=== PATIENT | female | born 1965 | race Caucasian/White ===

== ENCOUNTER 2025-03-15 01:42 | Day surgery (SDC) | payer OTHER, SELFPAY ==
[2025-02-23 15:10] VITALS: BMI 31.7
--- NOTE | 2025-02-23 15:21 | PC.NURSE ---
Report to the Outpatient Waiting Room, entrance under the green pavilion located off [facility], at time _0600__ on date __03/08/25 . Planned Procedure Time: _729 .? Time changes happen often and if your time is changed the preop area will call you the afternoon before. - You and your visitor will be asked to self-screen and do not enter if you have any COVID symptoms. Please call surgeon if you need to reschedule. - A mask is optional within the hospital at this time. Patients may have clear liquids (water, carbonated beverages, clear teas, apple juice) until 3 hours prior to surgery with a maximum of 20 ounces. - No food from midnight until time of surgery and no smoking, or chewing tobacco (or any form of nicotine). No chewing gum, candy or mints. - Infants may have breast milk until 4 hours before surgery, infant formula 6 hours prior to surgery. - Children will be allowed to drink immediately following surgery.? If applicable, please bring a bottle or sippy cup to assist with drinking. Juice, water, soda, and popsicles are readily available.? For infants on formula, please bring formula the day of surgery.? Pacifiers are allowed. Take only the following medications with a SIP of water on the morning of surgery: _Metoprolol, and flecanide DO NOT STOP ANY OF YOUR OTHER PRESCRIPTION MEDICATIONS PRIOR TO SURGERY EXCEPT THE FOLLOWING Hold all vitamins and supplements for 3 days per anesthesiologist. Medications to discontinue per physician ___Eliquis Date to take last dose__3 days prior Please no make-up, nail divehi, hairspray, perfume, deodorant, or body powder the day of surgery.? No jewelry (including any body piercings) or valuables the day of surgery, leave them at home.? Please take a shower or bath the night before, or the morning of, surgery with an antibacterial soap.? Wear comfortable, loose fitting clothing.? Children are encouraged to wear pajamas. - Jewelry must be removed prior to entering the operating room.? Rings and piercings that are not removed may be cut off. - The hospital will not accept responsibility for valuables.? - Please leave all valuables, including medications, at home the day of surgery. If you are going home after surgery, a licensed trailer truck driver must drive you home.? - NO public transportation without another adult if you receive anesthesia. - We recommend that an adult stay with you for 24 hours following discharge. - We also recommend that you do not drive, make important decision, drink alcoholic beverages, or take any drugs that were not prescribed by your health care provider for at least 24 hours after your discharge time. For Pediatric surgeries, we recommend two adults accompany the child home. Follow any additional instructions given to you from your surgeon. Telephone instructions given to ___Traci and asked if any additional questions and then verbalized understanding. Patient advised to call surgeon office or pre surgery nurse liaison [phone] if any additional questions.
--- NOTE | 2025-03-04 12:51 | PC.NURSE ---
Procedure rescheduled for 03/15/2025 - Pre-op interview done on 02/23/2025. At this time Pt states no changes to interview questions or PMH. This RN re-confirmed allergies, preferred pharmacy, and home med list; as well as, gave update instructions to patient. Report to the Outpatient Waiting Room, entrance under the green pavilion located off [facility], at time _1145__ on date __03/15/25 . Planned Procedure Time: _1345 .? Time changes happen often and if your time is changed the preop area will call you the afternoon before. - You and your visitor will be asked to self-screen and do not enter if you have any COVID symptoms. Please call surgeon if you need to reschedule. - A mask is optional within the hospital at this time. Patients may have clear liquids (water, carbonated beverages, clear teas, apple juice) until 3 hours prior to surgery with a maximum of 20 ounces. - No food from midnight until time of surgery and no smoking, or chewing tobacco (or any form of nicotine). No chewing gum, candy or mints. - Infants may have breast milk until 4 hours before surgery, infant formula 6 hours prior to surgery. - Children will be allowed to drink immediately following surgery.? If applicable, please bring a bottle or sippy cup to assist with drinking. Juice, water, soda, and popsicles are readily available.? For infants on formula, please bring formula the day of surgery.? Pacifiers are allowed. Take only the following medications with a SIP of water on the morning of surgery: _Metoprolol and flecanide_ DO NOT STOP ANY OF YOUR OTHER PRESCRIPTION MEDICATIONS PRIOR TO SURGERY EXCEPT THE FOLLOWING Hold all vitamins and supplements for 3 days per anesthesiologist. Medications to discontinue per physician ___Eliquis Date to take last dose__3 days prior Please no make-up, nail czech, hairspray, perfume, deodorant, or body powder the day of surgery.? No jewelry (including any body piercings) or valuables the day of surgery, leave them at home.? Please take a shower or bath the night before, or the morning of, surgery with an antibacterial soap.? Wear comfortable, loose fitting clothing.? Children are encouraged to wear pajamas. - Jewelry must be removed prior to entering the operating room.? Rings and piercings that are not removed may be cut off. - The hospital will not accept responsibility for valuables.? - Please leave all valuables, including medications, at home the day of surgery. If you are going home after surgery, a licensed transit mixer driver must drive you home.? - NO public transportation without another adult if you receive anesthesia. - We recommend that an adult stay with you for 24 hours following discharge. - We also recommend that you do not drive, make important decision, drink alcoholic beverages, or take any drugs that were not prescribed by your health care provider for at least 24 hours after your discharge time. For Pediatric surgeries, we recommend two adults accompany the child home. Follow any additional instructions given to you from your surgeon. Telephone instructions given to ___Traci and asked if any additional questions and then verbalized understanding. Patient advised to call surgeon office or pre surgery nurse liaison [phone] if any additional questions.
--- OUTSIDE RECORDS SUMMARY | 2025-03-15 01:45 | XMS_ITS | Clinical Summary ---
Author Organization [facility] Address [address] [place] [address] Care Team Providers Care Transit Operations Supervisor Name Role Phone Nash Tinajero MD Unavailable [phone] Alexi Islas MD Unavailable Sivan Merritt MD Primary Care Provider [phone] Allergies Active Allergy Reactions Criticality Noted Date Comments Meperidine Hives 10/22/2014 demerol Medications flecainide (TAMBOCOR) 100 MG tablet TAKE 1 TABLET BY MOUTH TWO TIMES A DAY 180 tablet 1 11/24/2024 Active valACYclovir (VALTREX) 500 MG tablet take 1 tablet by mouth twice a day for 5 days 01/26/2025 Active metoprolol succinate ER (TOPROL-XL) 50 MG 24 hr tablet Take 1 tablet (50 mg total) by mouth daily. NEW DOSE OV 01/29/25 90 tablet 1 01/29/2025 Active apixaban (ELIQUIS) 5 MG tablet Take 1 tablet (5 mg total) by mouth 2 (two) times daily. 60 tablet 5 01/29/2025 Active Active Problems Problem Noted Date Diagnosed Date Low vitamin D level 12/17/2024 Uterine bleeding 12/17/2024 Hyperlipidemia, mixed 09/03/2022 Assessment & Plan (12/23/2023 3:13 PM RELAY ENGINEER): Her ASCVD risk score is 2.4%. She is currently low risk. I am fine with lifestyle modifications and I do not think she requires statin therapy at this time. Assessment & Plan (09/03/2022 10:36 AM CDT): Her lipids are significantly elevated compared to previously. We will recheck another lipid panel. Fibromyalgia 08/18/2021 Paroxysmal A-fib ([facility]) 10/13/2018 Assessment & Plan (12/23/2023 3:13 PM RELAY ENGINEER): She is having minimal symptoms of atrial fibrillation. Continue flecainide, metoprolol and aspirin. Assessment & Plan (09/03/2022 10:36 AM CDT): She is having minimal symptoms of atrial fibrillation. Continue flecainide, metoprolol and aspirin. Assessment & Plan (07/10/2021 8:59 PM CDT): She is not having symptoms from atrial fibrillation. Continue flecainide, Metoprolol and aspirin. Obese 12/23/2014 Assessment & Plan (12/23/2023 3:13 PM RELAY ENGINEER): Pending her stress test, we will plan on encouraging lifestyle modifications if ischemic evaluation is negative. Assessment & Plan (07/10/2021 8:59 PM CDT): Pending her stress test, we will plan on encouraging lifestyle modifications if ischemic evaluation is negative. Heart palpitations Resolved Problems Problem Noted Date Diagnosed Date Resolved Date Shortness of breath 07/10/2021 08/29/20 22 Assessment & Plan (07/10/2021 8:58 PM CDT): We will plan on pharmacologic nuclear stress testing for further evaluation of her symptoms. She is not able to walk on a treadmill secondary to arthritis and joint pain. Abdominal pain 08/07/2018 08/29/2022 Cough 11/13/2017 08/29/2022 Acid reflux 10/12/2015 08/29/2022 Herniated disc, cervical 12/23/201410/2022 Heartburn 12/23/2014 08/29/2022 Vitamin D deficiency 10/26/2014 022 Encounters Date Type Department Care Team Description 02/26/2025 9:30 AM CDT Telephone [facility], [address] [address] Alexi Islas MD Holter Monitor 02/23/2025 3:17 PM CDT - 02/23/2025 11:59 PM CDT Hospital Encounter [facility] [place] [address] Alexi Islas MD Discharge Disposition: Home or Self Care (Routine Discharge) 02/23/2025 Travel 02/19/2025 Orders Only [facility], [address] [address] Alexi Islas MD 02/18/2025 4:15 PM CDT - 02/18/2025 11:59 PM CDT Hospital Encounter [facility] [place] [address] Evelyne Canales PA-C Discharge Disposition: Home or Self Care (Routine Discharge) 02/18/2025 Travel 02/18/2025 MyChart Message Enc [facility], [address] [address] Alexi Islas MD Rhythm Strip 02/18/2025 Telephone [facility], [address] [address] Evelyne Canales PA-C Concerns 01/29/2025 1:00 PM CDT Office Visit [facility], [address] [address] Alexi Islas MD Follow Up; Atrial Fibrillation 01/29/2025 Travel 01/01/2025 8:00 AM RELAY ENGINEER Anesthesia Event [facility] [address] Archana Rodrigues MD 01/01/2025 6:10 AM RELAY ENGINEER - 01/01/2025 11:59 PM RELAY ENGINEER Hospital Encounter [facility] [address] Alexi Islas MD Discharge Disposition: Home or Self Care (Routine Discharge) 01/01/2025 6:10 AM RELAY ENGINEER - 01/01/2025 3:40 PM RELAY ENGINEER Hospital Encounter [facility] [place] [address] Alexi Islas MD Schuessler, Martha E, MD Hunt, Abi Corona CRNA Discharge Disposition: Home or Self Care (Routine Discharge) 01/01/2025 Travel 12/22/2024 2:23 PM RELAY ENGINEER - 12/22/2024 11:59 PM RELAY ENGINEER Hospital Encounter [facility] [address] Piper ms, Destiny Phillips, OUTREACH REP Discharge Disposition: Home or Self Care (Routine Discharge) 12/22/2024 Travel from Last 3 Months Immunizations Immunization Administration Dates Next Due Fluarix (IIV4) 09/03/2019 Influenza (Generic) 09/02/2019,09/02/2019,2016 PFIZER COVID-19 (ORIGINAL FO RMULATION, PURPLE CAP) mRNA, LNP-S, PF, 30 MCG/0.3 ML DOSE 11/07/2020 Shingrix 09/10/2020 Tdap (Boostrix) 03/20/2019 Family History Medical History Relation Comments Heart Attack Maternal Grandmother Other Maternal Grandmother Valve Disease Maternal Grandmother Cancer Mother Diabetes Mother Heart Attack Mother Hypertension Mother Open Heart Mother Stent Cardiac Mother Stroke Mother cardiac disorder Mother cva Mother pancreatic ca Mother Relation Status Comments Brother Alive Father Alive Maternal Grandfather Maternal Grandmother Mother (Age 65) Paternal Grandfather Paternal Grandmother DU E TO PNEUMONIA Sister Alive Social History Tobacco Use Types Packs/Day Years Used Date Smoking Tobacco: Never Smokeless Tobacco: Never Tobacco Cessation:Counseling Given: Not Answered Alcohol Use Standard Drinks/Week Comments Yes 0 (1 standard drink = 0.6 oz pur e alcohol) rare Comments No Sex and Gender Information Value Date Recorded Sex Assigned at Female 12/04/2024 2:09 PM RELAY ENGINEER Legal Sex Female 8:08 PM CDT Gender Identity Not on file Sexual Orientation Not on file Occupation Industry Job Start Date Job End Date RN Not on file Not on file Not on file Last Filed Vital Signs Vital Sign Reading Time Taken Comments Blood Pressure 132/84 01/29/2025 1:07 PM CDT Pulse 58 01/29/2025 1:07 PM CDT Temperature 36.2 C (97.1 F) 01/01/2025 9:44 AM RELAY ENGINEER Respiratory Rate 20 01/01/2025 1:30 PM RELAY ENGINEER Oxygen Saturation 96% 01/29/2025 1:07 PM CDT Inhaled Oxygen Concentration - - Weight 97.5 kg (215 lb) 01/29/2025 1:07 PM CDT Height 172.7 cm (5' 8 ) 01/29/2025 1:07 PM CDT Body Mass Index 32.69 01/29/2025 1:07 PM CDT Plan of Treatment Upcoming Encounters Date Type Department Care Team (Late st Contact Info) Description 08/06/2025 1:15 PM CDT Office Visit [facility], [facility] [address], [place] [id number] Alexi Islas MD [facility]. [facility] [address] [place] [address] Health Maintenance Due Date Last Done Comments Colorectal Cancer Screening Colonoscopy (10 Years) 1965 Annual Physical 1969 Hepatitis C 1984 Hepatitis B Vaccines (1 of 3 - 19+ 3-dose series) 1985 Pneumococcal Vaccine: 50+ Years (1 of 1 - PCV) 2016 Cervical Cancer Screening Pap Smear (Age 30 to 64) Every 3 Years 02/17/2024 Cervical Cancer Screening with HPV 02/17/2024 COVID-19 Vaccine (2 - season) 2024 11/07/2020 Mammogram Screening 01/08/2026 01/08/2024, 12/06/2022, 12/06/2022, Additional history exists Cervical Cancer Screening Pap with HPV Testing (Age 30 to 64) Every 5 Years 03/08/2027 03/08/2022 DTaP, Tdap and Td Vaccines (2 - Td or Tdap) 03/20/2029 03/20/2019 Zoster Vaccines Completed 02/22/2021, 09/10/2020 Meningococcal B Vaccine Aged Out No l onger eligible based on patient's age to complete this topic Meningococcal Vaccine Aged Out No james tate eligible based on patient's age to complete this topic RSV Immunizations Under 20 Months Aged Out No longer eligible based on patient's age to complete this topic Procedures Procedure Name Priority Date/Time Associated Diagnosis Comments USE ECHOCARDIOGRAM Routine 02/23/2025 3: 45 PM CDT Paroxysmal A-fib (CMS/HCC HHS/HCC) MAGNESIUM Routine 02/18/2025 4:23 PM CDT Paroxysmal A-fib (CMS/HCC HHS/HCC) BASIC METABOLIC PANEL Routine 02/18/2025 4:23 PM CDT Paroxysmal A-fib (CMS/HCC HHS/HCC) ELECTROCARDIOGRAM (NON MIDMARK ACQUIRED) Routine 01/29/2025 1:13 PM CDT Paroxysmal A-fib (CMS/HCC HHS/HCC) ECG 12-LEAD STAT 01/01/2025 1:46 PM RELAY ENGINEER Paroxysmal A-fib (CMS/HCC HHS/HCC) USE ECHO 2D FU LTD Today 01/01/2025 11 :36 AM RELAY ENGINEER Paroxysmal A-fib (CMS/HCC HHS/HCC) ECG 12-LEAD STAT 01/01/2025 9:10 AM RELAY ENGINEER Paroxysmal A-fib (CMS/HCC HHS/HCC) XA A-FIB ABLATION Routine 01/01/2025 9:0 9 AM RELAY ENGINEER Paroxysmal A-fib (CMS/HCC HHS/HCC) POCT ACTIVATED CLOTTING TIME - ISTAT DOCKED DEVICE Routine 01/01/2025 8:38 AM RELAY ENGINEER TYPE & SCREEN STAT 01/01/2025 6:17 AM RELAY ENGINEER Paroxysmal A-fib (CMS/HCC HHS/HCC) PROTHROMBIN TIME, VENOUS STAT 025 6:17 AM RELAY ENGINEER Paroxysmal A-fib (CMS/HCC HHS/HCC) CBC W/DIFF AUTOMATED STAT 01/01/2025 6:17 AM RELAY ENGINEER Paroxysmal A-fib (CMS/HCC HHS/HCC) BASIC METABOLIC PANEL STAT 01/01/2025 6:17 AM RELAY ENGINEER Paroxysmal A-fib (CMS/HCC HHS/HCC) US PELVIC NON OB COMP TA+TV Routine 12/22/2024 3:23 PM RELAY ENGINEER Postmenopausal bleeding MAMMOGRAM GENERIC (SCAN ORDER) 12/06/2022 OUTSIDE CYTOPATH CERV/VAG INTERPRET (PAP) 03/08/2022 COLONOSCOPY Routine RELAY ENGINEER from Last 3 Months or Most Recently Relevant to Health Maintenance Results * USE ECHOCARDIOGRAM (02/23/2025 3:45 PM CDT) Anatomical Region Laterality Modality Cardiac Echocardiogram 02/23/2025 3:21 PM CDT Narrative 02/24/2025 2:56 PM CDT Echocardiography Report Pat.Name: TENJERRY AMEZQUITA WESTLEY L Pat.ID: [id number] St.Date: 02/23/2025 Refer.: [id number] NYLA JARRELL EWDPROV EWDPROV Exam Time: 3:21:00 PM Study Type:ECHO WITH CARDIAC DOPPLER COMP Height: 68 in Weight: 215 lb BSA: 2.11 m2 Age: 7 1965,59Y Sex: F BP: 128/78 HR: 69 bpm Sonogrphr: Severiano Aguilera RDCS, ACS Pat. Stat.:Outpatient Reason for Study:Atrial fibrillation / flutter Procedures: 2D, M-mode, Doppler, Color Flow, The study quality is technically adequate. Race: W ++++++++++++++++++++++++++++++++++++ SUMMARY: ++++++++++++++++++++++++++++++++++++ The left ventricular size is normal. The left ventricular systolic function is normal. Estimated left ventricular ejection fraction is 60-65%. There are no significant valvular abnormalities. ++++++++++++++++++++++++++++++++++++ FINDINGS: ++++++++++++++++++++++++++++++++++++ LV: The left ventricular size is normal. The left ventricular systolic function is normal. Estimated left ventricular ejection fraction is 60-65%. No concentric left ventricular hypertrophy. Left ventricular diastolic function is normal. WM: Wall motion appears normal in all segments. RV: The right ventricular size is normal. Right ventricular systolic function is normal. Right ventricular systolic pressure is 30-35 mmHg suggestive of mild pulmonary hypertension. IVS: No evidence of ventricular septal defect. LA: The left atrial volume is mildly increased (34- 41ml/M2). RA: Right atrial size is normal. IAS: Atrial septum appears intact. MARYBETH: No evidence of pericardial effusion. AO: Normal aortic root. SVn: Inferior vena cava is normal. Inferior vena cava shows >50% collapse with respiration consistent with normal right atrial pressure. AV: The aortic valve is trileaflet. No evidence of aortic valve stenosis. Trace aortic regurgitation. MV: Mild mitral regurgitation. No evidence of mitral stenosis. PV: No evidence of pulmonic valve stenosis. Mild pulmonic regurgitation. TV: Mild tricuspid regurgitation. No evidence of tricuspid valve stenosis. ++++++++++++++++++++++++++++++++++++ MEASUREMENTS: ++++++++++++++++++++++++++++++++++++ DOPPLER LVOT LVOTpkPG 5 mmHg LVOTmnPG 3 mmHg LVOTpkVel 117 cm/s (70-110)+* LVOT SV 87 ml LVOT TVI 27.8 cm Right Atrium RA Press 3 mmHg Coelho's Disk 20 AV Forward Flow AV TVI 32.2 cm AV pkPG 8 mmHg AV pkVel 137 cm/s (100-170)+ Area (TVI) 2.71 cm2 (3-5)* AV mnPG 5 mmHg Area (Arturo) 2.68 cm2 (3-5)* MV Forward Flow MV DeTm 151 msec MV pkE 97.4 cm/s (60-130) MV E/A 1.2 MV pkA 78.3 cm/s PV Forward Flow PV pkVel 103 cm/s (60-90)* PV AC 95 msec PV pkPG 4 mmHg PV Regurg Flow PV pkVel 153 cm/s TV Regurg Flow TV pkPG 31 mmHg TV pkVel 280 cm/s (30-70)* Right Ventricle RVsys P 34 mmHg Right Ventricle 13.2 cm/s Lat E' Lat e 11.9 cm/s Lat E/E' Lat E/e 8.2 Med E' Med e 8.05 cm/s Med E/E' Med E/e 12.1 Aortic Valve Aortic Valve Ar 1.28 Aortic Valve Ve 0.85 PV Antegrade Flow Acceleration Sl 820 cm/s2 PV Regurgitant Flow Peak Gradient ( 9 mmHg 2D Left Ventricle LVIDd 5.2 cm (3.6-5.2) LV ESV 29.7 ml LVIDs 3.5 cm (2.3-3.9) LV ESV 34.3 ml LngAxd 7.93 cm LVESV BP 32.9 ml LngAxd 8.43 cm LV EF 62.6 % LV EDV 79.4 ml LV EF 62.6 % LV EDV 91.8 ml LV EF BP 62.5 % LVEDV BP 87.7 ml LV SV 49.7 ml LngAxs 6.69 cm LV SV 57.5 ml LngAxs 7.22 cm LV SV BP 54.8 ml LVPW LVPWd 0.8 cm Ventricular Septum IVSd 0.8 cm Left Atrium LA VOLBP 76.2 ml Aorta Ao Rtd 3.3 cm LVOT LVOT 2 cm LVOTArea 3.14 cm2 Ratios IVS LA Biplane LAVol I BP 36.1 ml/m2 RA Single Plane Right Atrium MO 10.6 mm Right Atrium Sy 32.9 ml Right Atrium Sy 50.1 mm Right Atrium Sy 15.6 ml/m2 Right Atrium Sy 14.2 cm2 Right Ventricle Right Ventricle 30 mm Right Ventricle 16 mm Major [place] 67 mm MMODE TA Tricuspid Annul 25.2 mm <Electronic Signature> 02/24/2025 02:56 PM Nash Tinajero M.D. Procedure Note Nash Tinajero MD - 02/24/2025 Echocardiography Report Pat.Name: WESTLEY APPIAH Eileen Pat.ID: [id number] .Date: 02/23/2025 Refer.MD: [id number] NYLA JARRELL EWDPROV EWDPROV Exam Time: 3:21:00 PM Study Type:ECHO WITH CARDIAC DOPPLER COMP Height: 68 in Weight: 215 lb BSA: 2.11 m2 Age: 7 1965,59Y Sex: F BP: 128/78 HR: 69 bpm Sonogrphr: Severiano Aguilera [facility], ACS Pat. Stat.:Outpatient Reason for Study:Atrial fibrillation / flutter Procedures: 2D, M-mode, Doppler, Color Flow, The study quality is technically adequate. Race: W ++++++++++++++++++++++++++++++++++++ SUMMARY: ++++++++++++++++++++++++++++++++++++ The left ventricular size is normal. The left ventricular systolic function is normal. Estimated left ventricular ejection fraction is 60-65%. There are no significant valvular abnormalities. ++++++++++++++++++++++++++++++++++++ FINDINGS: ++++++++++++++++++++++++++++++++++++ LV: The left ventricular size is normal. The left ventricular systolic function is normal. Estimated left ventricular ejection fraction is 60-65%. No concentric left ventricular hypertrophy. Left ventricular diastolic function is normal. WM: Wall motion appears normal in all segments. RV: The right ventricular size is normal. Right ventricular systolic function is normal. Right ventricular systolic pressure is 30-35 mmHg suggestive of mild pulmonary hypertension. IVS: No evidence of ventricular septal defect. LA: The left atrial volume is mildly increased (34- 41ml/M2). RA: Right atrial size is normal. IAS: Atrial septum appears intact. MARYBETH: No evidence of pericardial effusion. AO: Normal aortic root. SVn: Inferior vena cava is normal. Inferior vena cava shows >50% collapse with respiration consistent with normal right atrial pressure. AV: The aortic valve is trileaflet. No evidence of aortic valve stenosis. Trace aortic regurgitation. MV: Mild mitral regurgitation. No evidence of mitral stenosis. PV: No evidence of pulmonic valve stenosis. Mild pulmonic regurgitation. TV: Mild tricuspid regurgitation. No evidence of tricuspid valve stenosis. ++++++++++++++++++++++++++++++++++++ MEASUREMENTS: ++++++++++++++++++++++++++++++++++++ DOPPLER LVOT LVOTpkPG 5 mmHg LVOTmnPG 3 mmHg LVOTpkVel 117 cm/s (70-110)+* LVOT SV 87 ml LVOT TVI 27.8 cm Right Atrium RA Press 3 mmHg Coelho's Disk 20 AV Forward Flow AV TVI 32.2 cm AV pkPG 8 mmHg AV pkVel 137 cm/s (100-170)+ Area (TVI) 2.71 cm2 (3-5)* AV mnPG 5 mmHg Area (Arturo) 2.68 cm2 (3-5)* MV Forward Flow MV DeTm 151 msec MV pkE 97.4 cm/s (60-130) MV E/A 1.2 MV pkA 78.3 cm/s PV Forward Flow PV pkVel 103 cm/s (60-90)* PV AC 95 msec PV pkPG 4 mmHg PV Regurg Flow PV pkVel 153 cm/s TV Regurg Flow TV pkPG 31 mmHg TV pkVel 280 cm/s (30-70)* Right Ventricle RVsys P 34 mmHg Right Ventricle 13.2 cm/s Lat E' Lat e 11.9 cm/s Lat E/E' Lat E/e 8.2 Med E' Med e 8.05 cm/s Med E/E' Med E/e 12.1 Aortic Valve Aortic Valve Ar 1.28 Aortic Valve Ve 0.85 PV Antegrade Flow Acceleration Sl 820 cm/s2 PV Regurgitant Flow Peak Gradient ( 9 mmHg 2D Left Ventricle LVIDd 5.2 cm (3.6-5.2) LV ESV 29.7 ml LVIDs 3.5 cm (2.3-3.9) LV ESV 34.3 ml LngAxd 7.93 cm LVESV BP 32.9 ml LngAxd 8.43 cm LV EF 62.6 % LV EDV 79.4 ml LV EF 62.6 % LV EDV 91.8 ml LV EF BP 62.5 % LVEDV BP 87.7 ml LV SV 49.7 ml LngAxs 6.69 cm LV SV 57.5 ml LngAxs 7.22 cm LV SV BP 54.8 ml LVPW LVPWd 0.8 cm Ventricular Septum IVSd 0.8 cm Left Atrium LA VOLBP 76.2 ml Aorta Ao Rtd 3.3 cm LVOT LVOT 2 cm LVOTArea 3.14 cm2 Ratios IVS LA Biplane LAVol I BP 36.1 ml/m2 RA Single Plane Right Atrium MO 10.6 mm Right Atrium Sy 32.9 ml Right Atrium Sy 50.1 mm Right Atrium Sy 15.6 ml/m2 Right Atrium Sy 14.2 cm2 Right Ventricle Right Ventricle 30 mm Right Ventricle 16 mm Major [place] 67 mm MMODE TA Tricuspid Annul 25.2 mm <Electronic Signature> 02/24/2025 02:56 PM Nash Tinajero M.D. Alexi Islas MD ECHO Final Result * (ABNORMAL) BASIC METABOLIC PANEL (02/18/2025 4:23 PM CDT) Only the most recent of2 resultswithin the time period is included. GLUCOSE 83 70 - 99 MG/DL 02/18/2025 5:33 PM CDT [facility] BUN 19(H) 7 - 18 MG/DL 02/18/2025 5:33 PM CDT [facility] CREATININE S/P/B 0.94 0.55 - 1.02 MG/DL 02/18/2025 5:33 PM CDT [facility] SODIUM S/P/B 142 136 - 145 MMOL/L 02/18/2025 5:33 PM CDT [facility] POTASSIUM S/P/B 3.8 3.5 - 5.1 MMOL/L 02/18/2025 5:33 PM CDT [facility] CHLORIDE S/P/B 108 97 - 115 MMOL/L 02/18/2025 5:33 PM CDT [facility] CO2 28.8 21 - 32 MMOL/L 02/18/2025 5:33 PM CDT [facility] CALCIUM S/P/B 9.9 8.5 - 10.1 MG/DL 02/18/2025 5:33 PM CDT [facility] ANION GAP 5.2 2 - 10 MMOL/L 02/18/2025 5:33 PM CDT [facility] BUN CREATININE RATIO 20.2 6 - 26 02/18/2025 5:33 PM CDT [facility] GFR ESTIMATE 70(L) >90 ML/MIN/1.7 3 M2 02/18/2025 5:33 PM CDT [facility] Comment: NOTE: eGFR is not calculated for patients <18 years of age or gender unknown. This is an estimated GFR calculation using the new CKD EPI creatinine equation without race and so does not require a correction factor for race. This estimated GFR should not be used for calculating drug doses. 02/18/2025 4:23 PM CDT Evelyne Canales PA-C LABORATORY Final Res ult [facility] [address] [place] [address], * MAGNESIUM (02/18/2025 4:23 PM CDT) MAGNESIUM 2.2 1.8 - 2.4 MG/DL 02/18/2025 5:33 PM CDT [facility] 02/18/2025 4:23 PM CDT Evelyne Canales PA-C LABORATORY Final Res ult Performing Organization Address [facility] Co de Phone Number [facility] [address] [place] [phone], * ELECTROCARDIOGRAM (01/29/2025 1:13 PM CDT) 01/29/2025 1:13 PM CDT Narrative [facility] - 01/31/2025 11:42 AM CDT [facility] Test Date: 2025-01-29 Pat Name: WESTLEY LAWRENCE Department: 112 Room: Gender: Female Enamel Drier: : 1965 Requested By: ALEXI ISLAS Order Number: [id number] Reading MD: Alexi Islas Measurements Intervals [place] Rate: 57 P: 56 ND: 190 QRS: -20 QRSD: 117 T: 28 QT: 413 QTc: 404 Interpretive Statements SINUS BRADYCARDIA MODERATE INTRAVENTRICULAR CONDUCTION DELAY NONSPECIFIC T-WAVE ABNORMALITY Compared to ECG dated 01/01/25, findings are similar. Procedure Note Alexi Islas MD - 01/31/2025 [facility]: 2025-01-29 Pat Name: WESTLEY LAWRENCE Department: 112 Room: Gender: Female Enamel Drier: : 1965 Requested By: ALEXI ISLAS Order Number: [id number] Reading MD: Alexi Islas Measurements Intervals [place] Rate: 57 P: 56 ND: 190 QRS: -20 QRSD: 117 T: 28 QT: 413 QTc: 404 Interpretive Statements SINUS BRADYCARDIA MODERATE INTRAVENTRICULAR CONDUCTION DELAY NONSPECIFIC T-WAVE ABNORMALITY Compared to ECG dated 01/01/25, findings are similar. us Alexi Islas MD PROCEDURES-ORDERABLE NO CHARGE F inal Result [facility] * ECG 12 lead (01/01/2025 1:46 PM RELAY ENGINEER) Only the most recent of2 resultswithin the time period is included. 01/01/2025 1:46 PM RELAY ENGINEER Narrative [facility] - 01/01/2025 5:43 PM RELAY ENGINEER [facility] [address] Test Date: 2025-01-01 Pat Name: WESTLEY HIMANSHU Department: 40 Room: [facility] Gender: Female Enamel Drier: [place] : 1965 Requested By: ALEXI ISLAS Order Number: [id number] Reading MD: Jamar Sanchez Measurements Intervals [place] Rate: 60 P: 24 ND: 185 QRS: -29 QRSD: 95 T: 64 QT: 394 QTc: 396 Interpretive Statements SINUS RHYTHM BORDERLINE LEFT AXIS DEVIATION [QRS AXIS < -20] NONSPECIFIC T-WAVE ABNORMALITY Compared to ECG 01/01/2025 09:10:40 No significant changes Y ENGINEER Procedure Note Jamar Sanchez MD - 01/01/2025 [facility] [place] [address] [facility] Test Date: 2025-01-01 Pat Name: WESTLEY LAWRENCE Department: 40 Room: [facility] Gender: Female Enamel Drier: CDNG : 1965 Requested By: ALEXI ISLAS Order Number: [id number] Reading MD: Jamar Sanchez Measurements Intervals [place] Rate: 60 P: 24 ND: 185 QRS: -29 QRSD: 95 T: 64 QT: 394 QTc: 396 Interpretive Statements SINUS RHYTHM BORDERLINE LEFT AXIS DEVIATION [QRS AXIS < -20] NONSPECIFIC T-WAVE ABNORMALITY Compared to ECG 01/01/2025 09:10:40 No significant changes Y ENGINEER us Alexi Islas MD ECG ORDERABLES Final Result [facility] RAD * USE ECHO 2D FU [facility] (01/01/2025 11:36 AM RELAY ENGINEER) Anatomical Region Laterality Modality Cardiac Echocardiogram 01/01/2025 11:2 5 AM RELAY ENGINEER Narrative 01/03/2025 8:50 AM RELAY ENGINEER Echocardiography Report Pat.Name: WESTLEY LAWRENCE Pat.ID: [id number] .Date: 01/01/2025 Refer.: [id number], alexi islas Exam Time: 11:25:00 AM Study Type:ECHO WITH CARDIAC DOPPLER COMP Height: 68 in Age: 7 1965,59Y Sex: F BP: 130/74 HR: 65 bpm Sonogrphr: Charla Capps RD Pat. Stat.:Outpatient Room: ODS Reason for Study:Post AF ablation History / Clinical:Atrial fibrillation, GERD Procedures: 2D, Limited. Race: W ++++++++++++++++++++++++++++++++++++ SUMMARY: ++++++++++++++++++++++++++++++++++++ No evidence of pericardial effusion. MARYBETH: No evidence of pericardial effusion. <Electronic Signature> 01/03/2025 08:50 AM Yosvany Zafar M.D. Procedure Note Yosvany Zafar MD - 01/03/2025 Echocardiography Report Pat.Name: WESTLEY LAWRENCE Pat.ID: [id number] .Date: 01/01/2025 Refer.MD: [id number], alexi islas Exam Time: 11:25:00 AM Study Type:ECHO WITH CARDIAC DOPPLER COMP Height: 68 in Age: 7 1965,59Y Sex: F BP: 130/74 HR: 65 bpm Sonogrphr: Charla Capps [facility] Pat. Stat.:Outpatient Room: ODS Reason for Study:Post AF ablation History / Clinical:Atrial fibrillation, GERD Procedures: 2D, Limited. Race: W ++++++++++++++++++++++++++++++++++++ SUMMARY: ++++++++++++++++++++++++++++++++++++ No evidence of pericardial effusion. MARYBETH: No evidence of pericardial effusion. <Electronic Signature> 01/03/2025 08:50 AM Yosvany Zafar M.D. us Alexi Islas MD ECHO Final Result * XA A-FIB ABLATION (01/01/2025 9:09 AM RELAY ENGINEER) Anatomical Region Laterality Modality Cardiac Change Over Narrative 01/04/2025 11:14 AM RELAY ENGINEER [facility] CARDIAC CATHETERIZATION/EP LAB [phone] Atrial Fibrillation Ablation (PFA) Patient's Name: Westley Lawrence Date of : 1965 Medical Record: #[id number] Account: #[id number] Physician: Alexi Islas MD Date: 01/01/2025 Procedure: #[id number] Indication: Atrial Fibrillation History: 59-year-old female with history of atrial fibrillation. Here for ablation. Physical Exam: Vitals: Per nursing record. Abdominal: Normal HEENT: Carotid upstroke normal. Lungs: Clear to auscultation bilaterally. CV: PMI normal, S1/S2 normal. No murmurs noted. Extremities: No edema noted Vascular: No aortic/carotid/femoral bruits noted. Pulses: Femoral: 2+ DP: 2+ PT: 2+ Procedure: Consent was obtained from the patient after a full explanation of the risks and benefits of the procedure. The patient was brought to the electrophysiology lab in the fasting state. The patient was prepped and draped in a sterile fashion. TIVA anesthesia administered by the anesthesia service was used for the procedure. Local anesthesia was infiltrated subcutaneously at the access site. Ultrasound guidance was used to access the veins. One 8Fr sheath was inserted into the right femoral vein; two sheaths (7 and 9 Fr) were inserted into the left femoral vein. Two Perclose devices were initially placed in the right femoral vein prior to sheath placement for venous closure after the procedure. Vein was accessed with ultrasound and noted to be patent. Images were saved and archived. One decapolar catheter was advanced through the 7Fr sheaths under 3d Mapping / ICE guidance into the coronary sinus. An 8Fr phased array ICE catheter was advanced to the heart through the 9Fr vascular sheath. CartoSound was used to create a 3D map of the left atrium. Transseptal access: After initiating a heparin bolus and drip to achieve an ACT >350ms, single transseptal puncture was performed using 3d Mapping/ICE guidance. An 8F VersaCross sheath and VersaCross RF wire was inserted via the right femoral vein sheath and advanced across the interatrial septum to the left atrium. Catheters/wires were advanced to the heart under fluoroscopic and 3d mapping/ICE guidance. CARTO 3D electroanatomic mapping was utilized. A multipolar Octaray mapping catheter was used for left atrial mapping. The mapping catheter was then withdrawn and VersaCross wire advanced again. The 16.8F FARADRIVE sheath was then inserted over the wire into the left atrium. The FARAWAVE pulse field ablation (PFA) catheter was then advanced through the sheath into the left atrium. EP study: Baseline values: AH 110 HV 45 ms ICE study: Intracardiac echocardiography was used to facilitate a transseptal catheterization, monitor pulmonary vein flow, assist in ablation catheter positioning, assess in suspected or unusual anatomic features and monitor for procedural complications. AV: The aortic valve is tri-leaflet. There is trace aortic regurgitation. LA: The left atrium is dilated. The LA diameter = 5.0 cm. The left atrial appendage is normal. There is no evidence of thrombus in the left atrial appendage. MV: The mitral valve is normal. There is mild mitral regurgitation. RA: The right atrium is normal. RV: The right ventricle is normal with normal function. TV: The tricuspid valve is normal. There is mild tricuspid regurgitation. PV: The pulmonic valve is normal. There is trace pulmonic regurgitation. Interatrial septum: The IAS is patent with no defect. LV: The left ventricle is normal with normal function. Pericardium: There is no pericardial effusion. Post procedure: There is no pericardial effusion. Ablation: Atrial fibrillation: A detailed electroanatomic map of the left atrium was created. The left pulmonary drainage pattern has two ostia and the right has two ostia to the LA. Pre-ablation baseline rhythm was normal sinus rhythm. A right circumferential and left circumferential pulmonary vein isolation was performed. The FARAWAVE catheter was placed in each pulmonary vein ostia and at least four lesions in both basket and flower configuration were delivered in each vein. Additional lesions were placed as needed to obtain adequate coverage of the veins for isolation. Multiple applications were given to achieve pulmonary vein isolation. Heparin was discontinued, sheath and catheter was pulled back to the right atrium. Final ICE was performed with no changes from baseline (as noted above). Vascade XL and [id number] suture were used to close the right femoral venous access. Vascade MVP used for hemostasis on the left femoral vein. The patient was transported to the holding area in stable condition. Complications: None. EBL: < 5cc. Summary: Successful pulmonary vein isolation. Successful posterior wall ablation Recommendations: Resume Eliquis in PACU Bed rest for 2 hours post sheath pull. Follow-up in clinic in 4-6 weeks. Alexi Islas M.D. PS/vs Interpreted: 01/01/25 Transcribed: 01/04/25 us Alexi Islas MD LASER BEAM MACHINE OPERATOR Final Result * (ABNORMAL) POCT ACTIVATED CLOTTING TIME - ISTAT DOCKED DEVICE (01/01/2025 8:38 AM RELAY ENGINEER) ACTIVATED CLOTTING TIME (ACT) 357(H) 74 - 125 SEC 01/01/2025 8:47 AM RELAY ENGINEER [facility] SHIPYARD PAINTER CODE 536,492 01/01/2025 8:47 AM RELAY ENGINEER [facility] 01/01/2025 8:38 AM RELAY ENGINEER us Alexi Islas MD POCT ORDERABLES - DEVICE Final R esult Performing Organization Address [facility] Co de Phone Number [facility] [address] [place] [address], [place] [phone] * TYPE & SCREEN (01/01/2025 6:17 AM RELAY ENGINEER) ABO/RH A POSITIVE 01/01/2025 7:19 AM RELAY ENGINEER [facility] ANTIBODY SCREEN NEGATIVE 01/01/2025 7:19 AM RELAY ENGINEER [facility] SAMPLE EXPIRATION 01/04/2025,2 359 01/01/2025 7:19 AM RELAY ENGINEER [facility] 01/01/2025 6:17 AM RELAY ENGINEER us Alexi Islas MD BLOOD BANK TEST ORDERABLES Final Result Performing Organization Address [facility] Co de Phone Number [address] [address], [place] [phone] * PROTIME/INR, VENOUS (01/01/2025 6:17 AM RELAY ENGINEER) PROTIME 12.0 10.2 - 12.9 SEC 01/01/2025 6:45 AM RELAY ENGINEER [facility] INR 1.0 01/01/2025 6:45 AM RELAY ENGINEER [facility] Comment: Recommended INR Therapeutic Goals: 2.0-3.0 Routine Therapy 2.5-3.5 Mechanical Prosthetic Valves (High Risk) 01/01/2025 6:17 AM RELAY ENGINEER Alexi Islas MD LABORATORY Final Result [facility] [address] [place] [address], [place] [phone] * (ABNORMAL) CBC W/DIFF AUTOMATED (01/01/2025 6:17 AM RELAY ENGINEER) [facility] WBC 3.84(L) 4.5 - 11.0 x10'3/uL 01/01/2025 6:34 AM RELAY ENGINEER [facility] RBC 4.82 4.20 - 5.40 x10'6/uL 01/01/2025 6:34 AM [facility] HGB 14.3 12.0 - 16.0 G/DL 01/01/2025 6:34 AM RELAY ENGINEER [facility] HCT 43.7 38.0 - 48.0 % 01/01/2025 6:34 AM [facility] MCV 90.7 81.0 - 99.0 FL 01/01/2025 6:34 AM [facility] MCH 29.7 27.0 - 31.0 PG 01/01/2025 6:34 AM RELAY ENGINEER [facility] MCHC 32.7 32.0 - 36.0 G/DL 01/01/2025 6:34 AM [facility] RDW 11.9 11.5 - 14.5 % 01/01/2025 6:34 AM [facility] PLT 187 130 - 400 x10'3/uL 01/01/2025 6:34 AM [facility] MPV 11.1 9.3 - 12.2 FL 01/01/2025 6:34 AM [facility] DIFFERENTIAL TYPE AUTOMATED DIFFERENTIAL 01/01/2025 6:34 AM RELAY ENGINEER [facility] NEUTROPHILS % 53.1 % 01/01/2025 6:34 AM [facility] LYMPHOCYTES % 33.3 % 01/01/2025 6:34 AM [facility] MONOCYTES % 11.2 % 01/01/2025 6:34 AM [facility] EOSINOPHILS 1.6 % 01/01/2025 6:34 AM [facility] BASOPHILS 0.5 % 01/01/2025 6:34 AM [facility] IMMATURE GRANS % 0.3 % 01/01/20 6:34 AM [facility] ABS. NEUTROPHILS 2.04 1.80 - 7.70 x10'3/uL 01/01/2025 6:34 AM [facility] ABS. LYMPHOCYTES 1.28 1.00 - 4.80 x10'3/uL 01/01/2025 6:34 AM [facility] ABS. MONOCYTES 0.43 0.24 - 0.86 x10'3/uL 01/01/2025 6:34 AM [facility] ABS. EOSINOPHILS 0.06 0.04 - 0.36 x10'3/uL 01/01/2025 6:34 AM [facility] ABS. BASOPHILS 0.02 0.01 - 0.08 x10'3/uL 01/01/2025 6:34 AM [facility] ABS. IMMATURE GRANULOCYTES 0.01 0.00 - 0.49 x10'3/uL 01/01/2025 6:34 AM [facility] 01/01/2025 6:17 AM RELAY ENGINEER Alexi Islas MD LABORATORY Final Result [facility] [address] [place] [address], * US PELVIC NON OB COMP TA+TV (12/22/2024 3:23 PM RELAY ENGINEER) Anatomical Region Laterality Modality Pelvis Ultrasound 12/27/2024 7:24 AM RELAY ENGINEER Impressions 12/27/2024 7:27 AM RELAY ENGINEER Impression: 1. The endometrium measures up to 7 mm in thickness, which is abnormal for a postmenopausal patient. This is nonspecific but could further correlate with endometrial biopsy. 2. The right ovary is not well assess due to its position behind the uterus. 3. The left ovary appears unremarkable. Ordered By: DESTINY BALDWIN Interpreted By: Олег Yin MD, 12/27/2024 7:24 AM Narrative 12/27/2024 7:27 AM RELAY ENGINEER [facility] [address] [place], [place] [address] Examination: US PELVIC NON OB COMP TA+TV Clinical Information: POST MENOPAUSAL BLEEDING Comparison: Ultrasound April 10, 2023. Technique: Grayscale, color Doppler and spectral waveform sonographic images were obtained transabdominally and transvaginally. Findings: UTERUS The uterus is normal in size and echogenicity. Uterine dimensions: 8.7 x 5.0 x 5.7 cm. Endometrial thickness: 7 mm. OVARIES The ovaries are normal in size and echogenicity. The right ovary is poorly assessed secondary to its position behind the uterus. The left ovary demonstrates normal color Doppler flow and spectral waveforms. No adnexal mass is identified. Right ovary: 1.8 x 1.2 x 1.6 cm. Left ovary: 1.9 x 1.0 x 1.3 cm. FREE FLUID None. Procedure Note Олег Yin MD - 12/27/2024 [facility] [address] [place], [place] [address] Examination: US PELVIC NON OB COMP TA+TV Clinical Information: POST MENOPAUSAL BLEEDING Comparison: Ultrasound April 10, 2023. Technique: Grayscale, color Doppler and spectral waveform sonographicimages were obtained transabdominally and transvaginally. Findings: UTERUS The uterus is normal in size and echogenicity. Uterine dimensions: 8.7 x 5.0 x 5.7 cm. Endometrial thickness: 7 mm. OVARIES The ovaries are normal in size and echogenicity. The right ovary is poorlyassessed secondary to its position behind the uterus. The left ovarydemonstrates normal color Doppler flow and spectral waveforms. No adnexalmass is identified. Right ovary: 1.8 x 1.2 x 1.6 cm. Left ovary: 1.9 x 1.0 x 1.3 cm. FREE FLUID None. Impression: 1. The endometrium measures up to 7 mm in thickness, which is abnormal fora postmenopausal patient. This is nonspecific but could further correlatewith endometrial biopsy. 2. The right ovary is not well assess due to its position behind theuterus. 3. The left ovary appears unremarkable. Ordered By: DESTINY BALDWIN Interpreted By: Олег Yin MD, 12/27/2024 7:24 AM Destiny Baldwin ULTRASOUND Final Result * MAMMOGRAM GENERIC (12/06/2022) Anatomical Region Laterality Modality Other 12/06/2022 [facility] Scanned SCANNING Final Resu lt * PAP SMEAR WITH HPV (03/08/2022) 03/08/2022 [facility] Scanned SCANNING Final Resu lt * Colonoscopy ( RELAY ENGINEER) Narrative [facility] TO EPIC CONVERSION - RELAY ENGINEER Documented hx of procedure Procedure Note Nikky Hayden MD - 09/21/2018 Documented hx of procedure us Generic Conversion Md [facility] GI PROCEDURE ORDERABLES Final Result [employer] TO EPIC CONVERSION from Last 3 Months or Most Recently Relevant to Health Maintenance Insurance redealize [facility]ESS [facility] * Guarantor: WESTLEY APPIAH Account Type Relation to Patient Date of Phone Billing Address Personal/Family Self Advance Directives * Full Code (Latest Code Status on File) Date Activated Date Inactivated Comments 01/01/2025 9:51 AM 01/01/2025 6:02 PM Care Teams Transit Operations Supervisor Relationship Specialty Start Date End Date Sivan Merritt MD [address] [place] [address] [place] [address] PCP - General INTERNAL MEDICINE 03/18/23 Nash Tinajero MD [facility] [address] [place] [address] [employer] [employer] Inspector INTERVENTIONAL CARDIOLOGY 08/15/18 Alexi Islas [facility] [address] [facility] [address] [place] [address] [employer] Generators Inspector CLINICAL CARDIAC ELECTROPHYSIOLOGY 10/01/18
--- OUTSIDE RECORDS SUMMARY | 2025-03-15 01:45 | XMS_ITS | Encounter Summary ---
Author Organization [facility] Address [address] [place] [address] Care Team Providers Care Timber Selector Name Role Phone Chung Conley MD Primary Care Provider + Encounter Details Date Type Department Care Team (Latest Contact Info) Description 08/22/2006 Outpatient Historical [facility] Toni Kumar MD [address] [place] [address] Abn Findings-GI Tract (Primary Dx) Social History Tobacco Use Types Packs/Day Years Used Date Smoking Tobacco: Never Assessed Comments Unknown Sex and Gender Information Value Date Recorded Sex Assigned at Not on file Legal Sex Female 3:16 AM SUPERVISOR FERTILIZER Gender Identity Not on file Sexual Orientation Not on file documented as of this encounter Plan of Treatment Upcoming Encounters Date Type Department Care Team (Late st Contact Info) Description 03/30/2025 7:20 AM CDT Appointment [facility] at [facility] [address] [facility] [address] [place] [address] Chung Conley MD [address] [place] [address] [place] [address] documented as of this encounter Procedures Procedure Name Priority Date/Time Associated Diagnosis Comments CBC WITH DIFFERENTIAL Routine 08/22/2006 9:53 AM CDT CBC WITH DIFFERENTIAL Routine 08/22/2006 9:53 AM CDT COMPREHENSIVE METABOLIC PANEL Routine 08/22/2006 9:53 AM CDT documented in this encounter Results * CBC WITH DIFFERENTIAL (08/22/2006 9:53 AM CDT) NEUTROPHILS 57 45 - 70 % INTERFAC E SYSTEM LYMPHOCYTES 32 16 - 45 % INTERFAC E SYSTEM MONOCYTES 10 3 - 13 % INTERFACE SYSTEM EOSINOPHILS 1 0 - 7 % INTERFAC E SYSTEM BASOPHILS 0 0 - 2 % INTERFACE SYSTEM NEUTROPHIL ABSOLUTE 2.42 1.90 - 7.00 K/uL INTERFACE SYSTEM LYMPHOCYTE ABSOLUTE 1.35 0.70 - 4.50 K/uL INTERFACE SYSTEM MONOCYTE ABSOLUTE 0.42 0.10 - 1.30 K/uL INTERFACE SYSTEM EOSINOPHIL ABSOLUTE 0.02 0.00 - 0.70 K/uL INTERFACE SYSTEM BASOPHILS ABSOLUTE 0.01 0.00 - 0.20 K/uL INTERFACE SYSTEM 08/22/2006 9:53 AM CDT us Toni Bishop MD HEMATOLOGY ORDERABLES Final Result INTERFACE SYSTEM Refer to clinic/hospital department * CBC WITH DIFFERENTIAL (08/22/2006 9:53 AM CDT) WBC 4.2 4.0 - 9.8 K/uL INTERFACE SYSTEM RBC 4.70 3.90 - 4.90 M/uL INTERFACE SYSTEM HEMOGLOBIN 13.7 11.8 - 14.8 g/dL INTERFACE SYSTEM HEMATOCRIT 40.3 35.5 - 44.0 % INTERFACE SYSTEM MCV 85.7 82.0 - 99.0 fL INTERFACE SYSTEM MCH 29.1 27.2 - 32.6 pg INTERFACE SYSTEM MCHC 34.0 31.5 - 35.5 % INTERFACE SYSTEM RDW 12.5 11.5 - 14.5 % INTERFACE SYSTEM RDW-STDEV 39.3 37.1 - 48.7 fL INTERFACE SYSTEM PLATELETS 192 140 - 350 K/uL INTERFACE SYSTEM MPV 11.6 9.3 - 12.4 fL INTERFACE SYSTEM 08/22/2006 9:53 AM CDT Toni Bishop MD HEMATOLOGY ORDERABLES Final Result Performing Organization Address [facility] Phone Number INTERFACE SYSTEM Refer to clinic/hospital department * (ABNORMAL) COMPREHENSIVE METABOLIC PANEL (08/22/2006 9:53 AM CDT) GLUCOSE 95 65 - 99 mg/dL INTERFACE SYSTEM CREATININE 0.7 0.4 - 1.2 mg/dL INTERFACE SYSTEM CALCIUM 9.3 8.4 - 10.2 mg/dL INTERFACE SYSTEM ALKALINE PHOSPHATASE 84 35 - 104 U/L INTERFACE SYSTEM AST 11(L) 12 - 32 U/L INTERFACE SYSTEM ALT 10 0 - 31 U/L INTERFACE SYSTEM TOTAL PROTEIN 7.7 6.3 - 8.6 g/dL INTERFACE SYSTEM ALBUMIN 4.5 3.4 - 4.8 g/dL INTERFACE SYSTEM BILIRUBIN TOTAL 0.4 0.2 - 1.0 mg/dL INTERFACE SYSTEM BUN 11 6 - 20 mg/dL INTERFACE SYSTEM SODIUM 139 135 - 145 mmol/L INTERFACE SYSTEM POTASSIUM 4.3 3.5 - 4.9 mmol/L INTERFACE SYSTEM CHLORIDE 104 96 - 108 mmol/L INTERFACE SYSTEM CO2 25 22 - 30 mmol/L INTERFACE SYSTEM 08/22/2006 9:53 AM CDT Toni Bishop MD CHEMISTRY ORDERABLES Final Result Performing Organization Address [facility] Phone Number INTERFACE SYSTEM Refer to clinic/hospital department documented in this encounter Visit Diagnoses Diagnosis Nonspecific (abnormal) findings on radiological and other examination of gastrointestinal tract- Primary Visit for screening mammogram Other screening mammogram documented in this encounter Care Teams Timber Selector Relationship Specialty Start Date End Date Chung Conley MD PCP - General Family Practice 09/06/21 documented as of this encounter
--- OUTSIDE RECORDS SUMMARY | 2025-03-15 01:45 | XMS_ITS | Encounter Summary ---
Author Organization [facility] Address [address] [place] [address] Care Team Providers Care Banquet Manager Name Role Phone Nash Tinajero MD Unavailable [phone] Rafiq Kumar MD Unavailable Chung Conley MD Primary Care Provider [phone] Valerie Gutierres MD Primary Care Provider [phone] Sivan Merritt MD Primary Care Provider [phone] Encounter Details Date Type Department Care Team (Late st Contact Info) Description 07/13/2021 [employer] Message Enc [facility], [facility] [address] [place] [address] Nash Tinajero MD [facility]. [facility] [address] [place] [address] Test Results Social History Tobacco Use Types Packs/Day Years Used Date Smoking Tobacco: Never Smokeless Tobacco: Never Alcohol Use Standard Drinks/Week Comments Yes 0 (1 standard drink = 0.6 oz pur e alcohol) rare Comments No Sex and Gender Information Value Date Recorded Sex Assigned at Female 12/04/2024 2:09 PM MARINE SERVICES TECHNICIAN Legal Sex Female 8:08 PM CDT Gender Identity Not on file Sexual Orientation Not on file Occupation Industry Job Start Date Job End Date RN Not on file Not on file Not on file COVID-19 Exposure Response Date Recorded In the last month, have you been in contact with someone who was confirmed or suspected to have Coronavirus / COVID-19? No / Unsure 07/10/2021 10:33 AM CDT documented as of this encounter Progress Notes * Daniela Webb RN - 07/13/2021 8:43 AM CDT Please advise documented in this encounter Plan of Treatment Upcoming Encounters Date Type Department Care Team (Late st Contact Info) Description 08/06/2025 1:15 PM CDT Office Visit [facility], [facility] [address] [place], [place] [id number] Rafiq Kumar MD [facility]. [facility] [address] [place] [address] documented as of this encounter Visit Diagnoses Not on filedocumented in this encounter Care Teams Banquet Manager Relationship Specialty Start Date End Date Chung Conley MD [facility]. [facility] [address] [place], [place] [address] PCP - General FAMILY PRACTICE 03/14/20 09/02/22 Valerie Gutierres MD [address] [place] [address] PCP - General FAMILY PRACTICE 09/03/22 03/17/23 Sivan Merritt MD [address] [facility] [address] [address] PCP - General INTERNAL MEDICINE 03/18/23 Nash Tinajero MD [facility]. [facility] [address] [place], [place] [address] [employer] Tube Drawing Supervisor INTERVENTIONAL CARDIOLOGY 08/15/18 Rafiq Kumar MD [facility] [address] [place] [address] EP Tube Drawing Supervisor CLINICAL CARDIAC ELECTROPHYSIOLOGY 10/01/18 documented as of this encounter
--- OUTSIDE RECORDS SUMMARY | 2025-03-15 01:45 | XMS_ITS | Encounter Summary ---
Author Organization [facility] Address [address] [place] [address] Care Team Providers Care Assessment Nurse Practitioner Name Role Phone Nash Tinajero MD Unavailable [phone] Rafiq Kumar MD Unavailable Chung Conley MD Primary Care Provider [phone] Valerie Gutierres MD Primary Care Provider [phone] Sivan Merritt MD Primary Care Provider [phone] Encounter Details Date Type Department Care Team (Late st Contact Info) Description 07/13/2021 [employer] Message Enc [facility] at [address] [address] Irish Alexander, SALES ENGINEER [address] [place] [address] Test Results Social History Tobacco Use Types Packs/Day Years Used Date Smoking Tobacco: Never Smokeless Tobacco: Never Alcohol Use Standard Drinks/Week Comments Yes 0 (1 standard drink = 0.6 oz pur e alcohol) rare Comments No Sex and Gender Information Value Date Recorded Sex Assigned at Female 12/04/2024 2:09 PM PLUNGER SCOOP OPERATOR Legal Sex Female 8:08 PM CDT Gender [...] AM CDT documented as of this encounter Plan of Treatment Upcoming Encounters Date Type Department Care Team (Late st Contact Info) Description 08/06/2025 1:15 PM CDT Office Visit [facility], [facility] [address] [place], [place] [address] Rafiq Kumar MD [facility]. [facility] [address] [place] [address] documented as of this encounter Visit Diagnoses Not on filedocumented in this encounter Care Teams Assessment Nurse Practitioner Relationship Specialty Start Date End Date Chung Conley MD [facility]. [facility] [address] [place] [address] PCP - General FAMILY PRACTICE 03/14/20 09/02/22 Valerie Gutierres MD [address] [place] [address] PCP - General FAMILY PRACTICE 09/03/22 03/17/23 Sivan Merritt MD [address] [address] PCP - General INTERNAL MEDICINE 03/18/23 Nash Tinajero MD [facility]. [facility] [address] [place], [place] [id number] [place] Part Time Flexible Clerk INTERVENTIONAL CARDIOLOGY 08/15/18 Rafiq Kumar MD [facility]. [facility] [address] [place], [place] [address] EP Part Time Flexible Clerk CLINICAL CARDIAC ELECTROPHYSIOLOGY 10/01/18 documented as of this encounter
--- OUTSIDE RECORDS SUMMARY | 2025-03-15 01:45 | XMS_ITS | Referral Summary ---
Author Organization [facility] Address [address] [place] [address] Care Team Providers Care Rigger Supervisor Name Role Phone aNsh Tinajero MD Unavailable [phone] Rafiq Kumar MD Unavailable Sivan Merritt MD Primary Care Provider [phone] Toni Bishop MD Unavailable [phone] Destiny Baldwin NP Unavailable Sher Mendez MD Unavailable [phone] Encounters Date Type Department Care Team Description 02/02/2025 Results Follow-Up [facility] [address] [place] [phone] Alma Rosa Carrizales NP 02/02/2025 7:10 AM CDT Lab [facility] Building [address] [place] [phone] Annual physical exam; Low vitamin D level; Hyperlipidemia, mixed 12/17/[address] [facility] [address] [place] [phone] Sivan Merritt MD Lab Results 12/17/2024 8:30 AM HOME HEALTH ADMINISTRATOR Lab [facility] [address] [place] [phone] Annual physical exam; Low vitamin D level; Uterine bleeding; Hyperlipidemia, mixed 12/17/2024 8:00 AM HOME HEALTH ADMINISTRATOR Office Visit [facility] [address] [place] [phone] Sivan Merritt MD Annual physical exam (Primary Dx); Paroxysmal A-fib (HCC); Low vitamin D level; BMI 32.0-32.9,adult; Uterine bleeding; Hyperlipidemia, mixed from Last 3 Months Allergies Active Allergy Reactions Criticality Noted Date Comments Meperidine Hives Medium 10/22/2014 demerol Medications flecainide (TAMBOCOR) 100 mg tablet Take 1 tablet (100 mg total) by mouth 2 (two) times a day 10/12/2019 Active Eliquis 5 mg tablet 12/05/2024 Active metoprolol XL (TOPROL-XL) 50 mg extended release tablet Take 1 tablet (50 mg total) by mouth 2 (two) times a day 11/09/2024 Active Active Problems Problem Noted Date Diagnosed Date Low vitamin D level 12/17/2024 Assessment & Plan (12/17/2024 8:13 AM HOME HEALTH ADMINISTRATOR): 2023 level was 25 Eat vitamin-D and calcium rich foods At risk for osteoporosis and bone loss May need to supplement Check levels Uterine bleeding 12/17/2024 Assessment & Plan (12/17/2024 8:16 AM HOME HEALTH ADMINISTRATOR): On eliquis Hx of fibroid Last pelvic US 03/2023, fibroid HEAD SWAMPER working on this Likely fibroid History of COVID-19 12/16/2023 Assessment & Plan (12/16/2023 8:16 AM HOME HEALTH ADMINISTRATOR): Xiomara 2022, got it while traveling no paxlovid taken Liver hemangioma 12/12/2022 Overview (12/12/2022): Dr Bishop is GI Work up done confirmed benign hemangiomas Interstitial cystitis 12/12/2022 Overview (12/12/2022): 2 flare ups age 21 and 30s Hx of Elmiron therapy Stopped sodas with aspartane History of nephrolithiasis 12/12/2022 Overview (12/12/2022): Hx of stent placement, no hx of lithotripsy No recurrence since Annual physical exam 12/10/2022 Assessment & Plan (12/17/2024 8:04 AM HOME HEALTH ADMINISTRATOR): Reviewed previous labs and diagnostic test results. Chronic medical problems evaluated and management plans discussed with the patient. Prescription medications, supplements, vitamins and immunizations reviewed. Wear seatbelts. Use sunscreen. Discussed healthy diet and disease prevention. Recommend moving towards a plant based diet. Discussed importance of scheduling recommended screening tests. Discussed importance of regular physical examinations for health maintenance. Up to date on colonoscopy Assessment & Plan (12/16/2023 8:02 AM HOME HEALTH ADMINISTRATOR): Reviewed previous labs and diagnostic test results. Chronic medical problems evaluated and management plans discussed with the patient. Prescription medications, supplements, vitamins and immunizations reviewed. Wear seatbelts. Use sunscreen. Discussed healthy diet and disease prevention. Recommend moving towards a plant based diet. Discussed importance of scheduling recommended screening tests. Discussed importance of regular physical examinations for health maintenance. Up to date on colonoscopy Assessment & Plan (12/12/2022 10:16 AM HOME HEALTH ADMINISTRATOR): Reviewed previous labs and diagnostic test results. Chronic medical problems evaluated and management plans discussed with the patient. Prescription medications, supplements, vitamins and immunizations reviewed. Wear seatbelts. Use sunscreen. Discussed healthy diet and disease prevention. Recommend moving towards a plant based diet. Discussed importance of scheduling recommended screening tests. Discussed importance of regular physical examinations for health maintenance. Up to date on colonoscopy Hyperlipidemia, mixed 09/03/2022 Overview (12/10/2022): Last Assessment & Plan: Her lipids are significantly elevated compared to previously. We will recheck another lipid panel. 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 Dr Juwan Bishop Fibromyalgia 01/26/2020 Overview (12/12/2022): Tried cymbalta, but had terrible sweats form it and at time of trial was already already getting better so felt the Cymbalta was not really helping Did see DR Mendez, rheumatology all work up negative, despite pos EMILY Assessment & Plan (12/16/2023 8:13 AM HOME HEALTH ADMINISTRATOR): Seems to be improving ff changes made, less sugar, more exercise, healthy eating Did see rheum and work up all negative, Dr Mendez Assessment & Plan (12/12/2022 10:12 AM HOME HEALTH ADMINISTRATOR): Seems to be improving ff changes made, less sugar, more exercise, healthy eating Did see rheum and work up all negative Paroxysmal A-fib 10/13/2018 Overview (12/12/2022): [place] [address] Nash Tinajero Cardiology On flecainide, asa and metoprolol Last Assessment & Plan: She is having minimal symptoms of atrial fibrillation. Continue flecainide, metoprolol and aspirin. Assessment & Plan (12/17/2024 8:04 AM HOME HEALTH ADMINISTRATOR): Dx in [address] Kumar EPS and Dr Tinajero cardiology Cont on flecainide, asa and BB metoprolol therapy She is having worsening symptoms needing an ablation, planned for Assessment & Plan (12/16/2023 8:02 AM HOME HEALTH ADMINISTRATOR): Dx in [address] Kumar and Dr Tinajero Cont on flecainide, asa and BB Assessment & Plan (12/12/2022 10:28 AM HOME HEALTH ADMINISTRATOR): Dx in [address] Kumar and Dr Tinajero Cont on flecainide, asa and BB Consider a smart watch to monitor Agree with plans for ablation with Dr Kumar BMI 32.0-32.9,adult 12/23/2014 Overview (12/10/2022): Last Assessment & Plan: Pending her stress test, we will plan on encouraging lifestyle modifications if ischemic evaluation is negative. Assessment & Plan (12/17/2024 8:13 AM HOME HEALTH ADMINISTRATOR): Improving on own with diet and lifestyle changes Cont to ride bike, doing 150 -180 mins a week Assessment & Plan (12/16/2023 8:13 AM HOME HEALTH ADMINISTRATOR): Cont wt loss Improving Exercise regularly, cont ride the bike Cont to avoid sugars, more healthy diet Get BMI under 30 Assessment & Plan (12/12/2022 10:22 AM HOME HEALTH ADMINISTRATOR): Morbid obesity = body mass index above 40, Obesity = Body mass index over 30. [place] body mass index is less than 25. Today your BMI =Body mass index is 39.29 kg/m . BMI Follow-up includes: nutrition counseling, exercise counseling and education provided. I recommend 30 minutes of challenging exercise daily to your heart rate goal. I recommend initiating the Whole 30 diet-- Consider going on this Whole 30 diet program. The book that discusses the diet in informative and a useful read. This diet eliminates: Alcohol, Sugar, Gluten, Legumes, Peanuts & Peanut butter, Soy, Dairy, processed foods and preservatives. After one month on these restrictions try to resume the food group you miss the most and observe how It effects you over 2-3 weeks before introducing foods from any other new group. I advise moving towards the Mediterranian diet as your ultimate diet routine Resolved Problems Problem Noted Date Diagnosed Date Resolved Date Acid reflux 01/28/2020 12/10/2022 Belching 01/28/2020 12/10/2022 Bloating 01/28/2020 12/10/2022 Epigastric discomfort 01/28/20202022 Heart palpitations 01/28/2020 Large liver 01/28/2020 12/10/2022 Right upper quadrant pain 01/28/2020 Immunizations Immunization Administration Dates Next Due Influenza, Quadrivalent, Spl it, Preservative Free, Intramuscular 09/03/2019 Influenza, Trivalent, IM (MDV) 08/18/2017 Influenza, Trivalent, Preser vative Free, Intramuscular 09/02/2019,08/18/2017 Influenza, Unspecified 08/31/2024,2022,08/28/2022,09/02,08/18/2017 Tdap 03/20/2019 ZOSTER Recombinant 02/22/2021,09/10/2020 Social History Tobacco Use Types Packs/Day Years Used Date Smoking Tobacco: Never Smokeless Tobacco: Never Tobacco Cessation:Counseling Given: Not Answered AUDIT-C Answer Date Recorded Q1: How often do you have a drink containing alc ohol? Monthly or less 12/16/2023 Q2: How many drinks containi ng alcohol do you have on a typical day when you are drinking? 1 or 2 12/16/2023 Q3: How often do you have si x or more drinks on one occasion? Never 12/16/2023 PHQ-2 Answer Date Recorded PHQ-2 Total Score (If total score is 3 or more points, staff should administer the PHQ-9) 0 12/17/2024 Comments No Sex and Gender Information Value Date Recorded Sex Assigned at Not on file Legal Sex Female 6:34 PM HOME HEALTH ADMINISTRATOR Gender Identity Not on file Sexual Orientation Not on file Occupation Industry Job Start Date Job End Date RN Not on file Not on file Not on file Last Filed Vital Signs Vital Sign Reading Time Taken Comments Blood Pressure 126/76 12/17/2024 7:48 AM HOME HEALTH ADMINISTRATOR Pulse 63 12/17/2024 7:48 AM HOME HEALTH ADMINISTRATOR Temperature 36.3 C (97.3 F) 12/17/2024 7:48 AM HOME HEALTH ADMINISTRATOR Respiratory Rate 16 12/06/2022 3:48 PM HOME HEALTH ADMINISTRATOR Oxygen Saturation 99% 12/17/2024 7:48 AM HOME HEALTH ADMINISTRATOR Inhaled Oxygen Concentration - - Weight 98.4 kg (217 lb) 12/17/2024 7:48 AM HOME HEALTH ADMINISTRATOR Height 172.7 cm (5' 8 ) 12/17/2024 7:48 AM HOME HEALTH ADMINISTRATOR Body Mass Index 32.99 12/17/2024 7:48 AM HOME HEALTH ADMINISTRATOR Plan of Treatment Not on file Goals Goal Patient Goal Type Associated Problems Recent Progress Patient-Stated? Author CCM Chronic Pain Care Plan Chronic Care Management Worsening( 2:58 PM CDT) Peggy Mcghee, RN Note: Problem: Chronic Pain Goals: 1. Minimize further functional decline 2. Maximize quality of life 3. Control pain Strategies: - Activity/exercise program recommendation - Conservative stepwise pain medicine strategy with multi-disciplinary approach - Recommend healthy lifestyle strategies and compensatory methods as needed Procedures Procedure Name Priority Date/Time Associated Diagnosis Comments URINALYSIS AND REFLEX TO MICROSCOPIC AND CULTURE Routine 02/02/2025 7:29 AM CDT Annual physical exam Low vitamin D level Hyperlipidemia, mixed EGFR Routine 12/17/2024 8:38 AM HOME HEALTH ADMINISTRATOR Annual physical exam Low vitamin D level Uterine bleeding Hyperlipidemia, mixed COMPREHENSIVE METABOLIC PANEL Routine 12/17/2024 8:38 AM HOME HEALTH ADMINISTRATOR Annual physical exam Low vitamin D level Uterine bleeding Hyperlipidemia, mixed LIPID PANEL Routine 12/17/2024 8:38 AM HOME HEALTH ADMINISTRATOR Annual physical exam Low vitamin D level Uterine bleeding Hyperlipidemia, mixed TSH Routine 12/17/2024 8:38 AM HOME HEALTH ADMINISTRATOR Annual physical exam Low vitamin D level Uterine bleeding Hyperlipidemia, mixed T4, FREE Routine 12/17/2024 8:38 AM HOME HEALTH ADMINISTRATOR Annual physical exam Low vitamin D level Uterine bleeding Hyperlipidemia, mixed MAGNESIUM Routine 12/17/2024 8:38 AM HOME HEALTH ADMINISTRATOR Annual physical exam Low vitamin D level Uterine bleeding Hyperlipidemia, mixed VITAMIN D 25 HYDROXY Routine 12/17/2024 8:38 AM HOME HEALTH ADMINISTRATOR Annual physical exam Low vitamin D level Uterine bleeding Hyperlipidemia, mixed HM MAMMOGRAPHY Routine 01/08/2024 HEPATITIS C ANTIBODY Routine 12/18/2022 6:21 AM HOME HEALTH ADMINISTRATOR from Last 3 Months or Most Recently Relevant to Health Maintenance Results * Urinalysis reflex to microscopic and culture Urine, clean voided (02/02/2025 7:29 AM CDT) Color, ur Yellow Yellow Comment:Testing performed by : [address] [address] Clarity, ur Clear Clear [facility] Comment:Testing performed by : [address] [address] Specific gravity, ur 1.016 1.003 - 1.030 [facility] Comment:Testing performed by : [address] [address] pH, urine 5.0 [facility] Comment: Interpretive Data U rine pH is affected by diet, medications, systemic acid-base disturbances, and renal tubular function. pH may affect urinary stone formation. For example, urine pH below 6.0 may help reduce the tendency for calcium phosphate stones and pH greater than 6.0 may reduce the tendency for uric acid stone formation. Source: [facility] [employer] Current Interpretive Data was last revised on 2017 Testing performed by: [address] [address] Protein, ur ql Negative Negative [facility] Comment:Testing performed by : [address] [address] Glucose, ur ql Negative Negative [facility] Comment:Testing performed by : [address] [address] Ketones, ur Negative Negative [facility] Comment:Testing performed by : [address] [address] Bilirubin, ur Negative Negative [facility] Comment:Testing performed by : [address] [address] Blood, ur Negative Negative [facility] Comment:Testing performed by : [address] [address] Urobilinogen, ur <2.0 <2.0 mg/dL [facility] Comment:Testing performed by : [facility], [address] [place] [address]., [address] Nitrite, ur Negative Negative [facility] Comment:Testing performed by : [address] [address] Leukocyte esterase, ur Negative Negative [facility] Comment:Testing performed by : [address] [address] UA reflex comment Reflex conditions for microscopic UA and culture not met. [facility] Comment:Testing performed by : [facility], [address] [place] [address], [place]., [address] Urine, clean voided 02/02/2025 7:29 AM CDT 02/02/2025 10:07 AM CDT Narrative [facility] - 02/02/2025 10:23 AM CDT Urine Collection Method->Clean Catch us Sivan Merritt MD LAB MICROBIOLOGY - GENERAL O RDERABLES Final Result [facility] [address] [facility] Department [place] [address] * eGFR (12/17/2024 8:38 AM HOME HEALTH ADMINISTRATOR) eGFR >90 >=60 mL/min/1. 73 m2 Comment: Interpretive Data Reference Interval Normal >/= 90 mL/min/1.73m2 Mildly decreased* 60 - 89 mL/min/1.73m2 Mildly to moderately decreased 45 - 59 mL/min/1.73m2 Moderately to severely decreased 30 - 44 mL/min/1.73m2 Severely decreased 15 - 29 mL/min/1.73m2 Kidney Failure < 15 mL/min/1.73m2 *Relative to young adult level Estimated glomerular filtration rate is determined by the 2020 CKD-EPI equation recommended by the National Kidney Foundation (A Unifying Approach to GFR Estimation: Recommendations of the NKF-ASK Task Force on Reassessing the Inclusion of Race in Diagnosing Kidney Disease, JASN 2020). The CKD-EPI equation should not be used for patients with unstable renal function and has not been validated in children and those over 70. Current interpretive data was last reviewed 2021. Testing performed by: [address] [address] Blood 12/17/2024 8:38 AM HOME HEALTH ADMINISTRATOR 12/17/2024 9:32 AM HOME HEALTH ADMINISTRATOR us Sivan Merritt MD LAB BLOOD ORDERABLES Final R esult Performing Organization Address City/[facility]/ZIP Co de Phone Number HARDY[address] [place] [address] * (ABNORMAL) Vitamin D 25 hydroxy (12/17/2024 8:38 AM HOME HEALTH ADMINISTRATOR) Vitamin D 25-OH 28.0(L) 30.0 - 80.0 ng/mL Blood 12/17/2024 8:38 AM HOME HEALTH ADMINISTRATOR 12/17/2024 10:18 AM HOME HEALTH ADMINISTRATOR us Sivan Merritt MD LAB BLOOD ORDERABLES Final R esult Performing Organization Address [facility] Co de Phone Number [id number] [address] * TSH (12/17/2024 8:38 AM HOME HEALTH ADMINISTRATOR) Thyroid Stimulating Hormone 1.98 0.30 - 4.20 mcIUnit/mL Comment:Testing performed by : [address] [address] Blood 12/17/2024 8:38 AM HOME HEALTH ADMINISTRATOR 12/17/2024 9:32 AM HOME HEALTH ADMINISTRATOR us Sivan Merritt MD LAB BLOOD ORDERABLES Final R esult Performing Organization Address [facility] Co de Phone Number [id number] [place] [address] * T4, free (12/17/2024 8:38 AM HOME HEALTH ADMINISTRATOR) Free T4 1.33 0.90 - 1.70 ng/dL Comment:Testing performed by : [address] [address] Blood 12/17/2024 8:38 AM HOME HEALTH ADMINISTRATOR 12/17/2024 9:32 AM HOME HEALTH ADMINISTRATOR Sivan Merritt MD LAB BLOOD ORDERABLES Final R esult Performing Organization Address City/[facility]/ZIP Co de Phone Number [address] [place] [address] * Magnesium (12/17/2024 8:38 AM HOME HEALTH ADMINISTRATOR) Magnesium 2.2 1.4 - 2.5 mg/dL Comment:Testing performed by : [address] [address] Blood 12/17/2024 8:38 AM HOME HEALTH ADMINISTRATOR 12/17/2024 9:32 AM HOME HEALTH ADMINISTRATOR Sivan Merritt MD LAB BLOOD ORDERABLES Final R esult Performing Organization Address City/[facility] Co de Phone Number [address] [place] [address] * (ABNORMAL) Lipid panel (12/17/2024 8:38 AM HOME HEALTH ADMINISTRATOR) Cholesterol 221(H) 30 - 199 mg/dL Comment: Interpretive Data Ages < or = 19 years Acceptable: <170 mg/dL Borderline high: 170-199 mg/dL High: >or= 200 mg/dL Ages > or = 20 years Desirable: <200 mg/dL Borderline high: 200-239 mg/dL High: >or= 240 mg/dL Literature References: 1. Expert Panel on Integrated Guidelines for Cardiovascular Health and Risk Reduction in Children and Adolescents. Pediatrics 2011;128:S213 2. NCEP Expert Panel. Circulation 2004;110:227 Current Interpretive Data was last revised on 2018. Testing performed by: [address] [address] Triglycerides 184(H) <=149 mg/dL [facility] Comment: Interpretive Data Ages < or = 9 years Acceptable: <75 mg/dL Borderline high: 75-99 mg/dL High: >or= 100 mg/dL Ages 10 to 20 years Acceptable: <90 mg/dL Borderline high: 90-129 mg/dL High: >or= 130 mg/dL Ages > or = 20 years Desirable: <150 mg/dL Borderline high: 150-199 mg/dL High: 200-499 mg/dL Very high: >or= 499 mg/dL Literature References: 1. Expert Panel on Integrated Guidelines for Cardiovascular Health and Risk Reduction in Children and Adolescents. Pediatrics 2011;128:S213 2. NCEP Expert Panel. Circulation 2004;110:227 Current Interpretive Data was last revised on 2018. Testing performed by: [address] [address] HDL 57 >=40 mg/dL [facility] Comment: Interpretive Data Ages < or = 19 years Acceptable: >45 mg/dL Borderline low: 40-45 mg/dL Low: <40 mg/dL Ages > or = 20 years Desirable: >or= 60 mg/dL Low: <40 mg/dL Literature References: 1. Expert Panel on Integrated Guidelines for Cardiovascular Health and Risk Reduction in Children and Adolescents. Pediatrics 2011;128:S213 2. NCEP Expert Panel. Circulation 2004;110:227 Current Interpretive Data was last revised on 2018. Testing performed by: [address] [address] LDL, calculated 131(H) <=129 mg/dL [facility] Comment: Interpretive Data Ages < or = 19 years Acceptable: <110 mg/dL Borderline high: 110-129 mg/dL High: >or= 130 mg/dL Ages > or = 20 years Optimal: <100 mg/dL Near optimal: 100-129 mg/dL Borderline high: 130-159 mg/dL High: >160 mg/dL Calculated using the Chidi LDL-C estimating equation. This equation was implemented on 2024. Prior to this date LDL-C was estimated using the Friedewald equation. Literature References: 1. Expert Panel on Integrated Guidelines for Cardiovascular Health and Risk Reduction in Children and Adolescents. Pediatrics 2011;128:S213 2. NCEP Expert Panel. Circulation 2004;110:227 3. Chidi Gates et al. MONY Cardiol. 2020 March 18;5(5):540-548. doi: 10.1001/jamacardio.2020.0013 Current Interpretive Data was last revised on 2024. Testing performed by: [address] [address] Non-HDL Cholesterol 164 mg/dL [facility] Comment: Interpretive Data Ages < or = 19 years Acceptable: <120 mg/dL Borderline high: 120-144 mg/dL High: >145 mg/dL Ages > or = 20 years When triglycerides are >200 mg/dL, Non-HDL cholesterol is a secondary target of therapy with treatment goals that are 30 mg/dL greater than the LDL cholesterol target. Literature References: 1. Expert Panel on Integrated Guidelines for Cardiovascular Health and Risk Reduction in Children and Adolescents. Pediatrics 2011;128:S213 2. NCEP Expert Panel. Circulation 2004;110:227 Current Interpretive Data was last revised on 2018. Testing performed by: [address] [address] Chol/HDL ratio 4 [facility] Comment:Testing performed by : [address] [address] Blood 12/17/2024 8:38 AM HOME HEALTH ADMINISTRATOR 12/17/2024 9:32 AM HOME HEALTH ADMINISTRATOR us Sivan Merritt MD LAB BLOOD ORDERABLES Final R esult [facility] [address] [facility] Department of Laboratories [place], [place] [id number] * Comprehensive metabolic panel (12/17/2024 8:38 AM HOME HEALTH ADMINISTRATOR) Sodium 141 135 - 145 mmol/L Comment:Testing performed by : [address] [address] Potassium, pl 4.5 3.3 - 4.9 mmol/L [facility] Comment:Testing performed by : [address] [address] Chloride 105 97 - 110 mmol/L [facility] Comment:Testing performed by : [address] [address] CO2 26 22 - 32 mmol/L [facility] Comment:Testing performed by : [address] [address] Anion gap 10 2 - 15 mmol/L [facility] Comment:Testing performed by : [address], [place]., [address] BUN 12 6 - 25 mg/dL [facility] Comment:Testing performed by : [address], [place]., [address] Creatinine 0.75 0.60 - 1.10 mg/dL [facility] Comment:Testing performed by : [address], [place]., [address] Glucose 100 70 - 199 mg/dL [facility] Comment: Interpretive Data Fasting glucose >/= 126 mg/dl is diagnostic for diabetes. Fasting is defined as no caloric intake for at least 8 hours. Fasting glucose between 100 mg/dl to 125 mg/dl is diagnostic of prediabetes. In a patient with classic symptoms of hyperglycemia or hyperglycemic crisis, a random glucose >/= 200 mg/dl is diagnostic for diabetes. In the absence of unequivocal hyperglycemia, results should be confirmed by repeat testing. The classification and Diagnosis of Diabetes Diabetes Care 2021; 46: S19-S40. Current interpretive data was last revised 2022. Testing performed by: [address] [address] Calcium 10.1 8.5 - 10.3 mg/dL [facility] Comment:Testing performed by : [address] [address] Bilirubin, total 0.5 0.1 - 1.2 mg/dL [facility] Comment:Testing performed by : [address] [address] Protein, pl 7.2 6.5 - 8.5 g/dL [facility] Comment:Testing performed by : [address] [address] Albumin 4.4 3.5 - 5.0 g/dL [facility] Comment:Testing performed by : [address] [address] Alk phos 76 40 - 130 Units/L [facility] Comment:Testing performed by : [facility], [address] [place] [address]., [address] ALT 8 7 - 45 Units/L [facility] Comment:Testing performed by : [address] [address] AST 13 10 - 45 Units/L [facility] Comment:Testing performed by : [address] [address] Blood 12/17/2024 8:38 AM HOME HEALTH ADMINISTRATOR 12/17/2024 9:32 AM HOME HEALTH ADMINISTRATOR Sivan Merritt MD LAB BLOOD ORDERABLES Final R esult Performing Organization Address City/[facility] Co de Phone Number HARDYKRISTIAN [address] [facility] Department of Laboratories [place] [address] * HM MAMMOGRAPHY (01/08/2024) Mammography Normal Thom Holden MD HEALTH MAINTENANCE Final Result * Hepatitis C antibody (12/18/2022 6:21 AM HOME HEALTH ADMINISTRATOR) Hep C Ab NON-REACTI VE NON-REACT JAH [facility] SIGNAL TO CUT-OFF 0.27 <1.00 [facility] Comment: HCV antibody was non-reactive. There is no laboratory evidence of HCV infection. In most cases, no further action is required. However, if recent HCV exposure is suspected, a test for HCV RNA (test code 09385) is suggested. For additional information please refer to http://education.LightCyber.Avanzit/faq/MCK31y7 (This link is being provided for informational/ educational purposes only.) 12/18/2022 6:21 AM HOME HEALTH ADMINISTRATOR 12/18/2022 6:24 AM HOME HEALTH ADMINISTRATOR Narrative [facility] - 12/19/2022 3:09 AM HOME HEALTH ADMINISTRATOR FASTING:YES FASTING: YES Sivan Merritt MD LAB MICROBIOLOGY - GENERAL O RDERABLES Final Result Performing Organization Address City/[facility]/ZIP Co de Phone Number [facility] [employer] [facility] [address] [place] [address] from Last 3 Months or Most Recently Relevant to Health Maintenance Insurance [facility] Care Teams Rigger Supervisor Relationship Specialty Start Date End Date Sivan Merritt MD [address] [place] [address] [address] [place] [address] PCP - General Internal Medicine 12/12/22 Nash Tinajero MD Referring Physician Cardiology 12/10/22 Rafiq Kumar MD 3 [facility] [address] [place], [place] [address] Referring Physician Clinical Cardiac Electrophysiology 12/10/22 Toni Bishop MD [address] [place] [address] [facility] [address] [place] [address] Referring Physician Gastroenterology 12/12/22 Destiny Baldwin, [employer] [address] [facility] [address] [place] [address] Nurse Practitioner Obstetrics and Gynecology 12/12/22 Sher Mendez MD [address] [facility], [address] [address] Consulting Physician Rheumatology 12/16/23
--- OUTSIDE RECORDS SUMMARY | 2025-03-15 01:45 | XMS_ITS | Clinical Summary ---
Author Organization [facility] Address [address] [place] [address] Care Team Providers Care Cia Agent Name Role Phone Nash Tinajero MD Unavailable [phone] Rafiq Kumar MD Unavailable Sivan Merritt MD Primary Care Provider + [phone] Toni Bishop MD Unavailable [phone] Destiny Baldwin NP Unavailable Sher Mendez MD Unavailable [phone] Allergies Active Allergy Reactions Criticality Noted Date [...] 12/17/2024 Assessment & Plan (12/17/2024 8:13 AM PROTOHISTORIAN): 2023 level was 25 Eat vitamin-D and calcium rich foods At risk for osteoporosis and bone loss May need to supplement Check levels Uterine bleeding 12/17/2024 Assessment & Plan (12/17/2024 8:16 AM PROTOHISTORIAN): On eliquis Hx of fibroid Last pelvic US 03/2023, fibroid 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 [...] colonoscopy Assessment & Plan (12/16/2023 8:02 AM PROTOHISTORIAN): Reviewed previous labs and diagnostic test results. [...] colonoscopy Assessment & Plan (12/12/2022 10:16 AM PROTOHISTORIAN): Reviewed previous labs and diagnostic test results. [...] with diarrhea 0 Overview (12/12/2022): cck in 1999 Hx of colonoscopy at age 56, 2021 Dr ySed Bishop Assessment & Plan (12/16/2023 8:13 AM PROTOHISTORIAN): Living with it Colonoscopy 2021. Dr Juwan Bishop Fibromyalgia 01/26/2020 Overview (12/12/2022): Tried cymbalta, but had terrible sweats form it and at time of trial was already already getting better so felt the Cymbalta was not really helping Did see DR Mendez, rheumatology all work up negative, despite pos EMILY Assessment & Plan (12/16/2023 8:13 AM PROTOHISTORIAN): Seems to be improving ff changes made, less sugar, more exercise, healthy eating Did see rheum and work up all negative, Dr Mendez Assessment & Plan (12/12/2022 10:12 AM PROTOHISTORIAN): Seems to be improving ff changes made, [...] aspirin. Assessment & Plan (12/17/2024 8:04 AM PROTOHISTORIAN): Dx in [address] Kumar EPS and Dr Tinajero cardiology Cont on flecainide, asa and BB metoprolol therapy She is having worsening symptoms needing an ablation, planned for Assessment & Plan (12/16/2023 8:02 AM PROTOHISTORIAN): Dx in [address] Kumar and Dr Tinajero Cont on flecainide, asa and BB Assessment & Plan (12/12/2022 10:28 AM PROTOHISTORIAN): Dx in [address] Kumar and Dr Tinajero Cont on flecainide, asa and BB Consider a smart watch to monitor Agree with plans for ablation with Dr Kumar BMI 32.0-32.9,adult 12/23/2014 Overview (12/10/2022): Last Assessment & Plan: Pending her stress test, we will plan on encouraging lifestyle modifications if ischemic evaluation is negative. Assessment & Plan (12/17/2024 8:13 AM PROTOHISTORIAN): Improving on own with diet and lifestyle changes Cont to ride bike, doing 150 -180 mins a week Assessment & Plan (12/16/2023 8:13 AM PROTOHISTORIAN): Cont wt loss Improving Exercise regularly, cont ride the bike Cont to avoid sugars, more healthy diet Get BMI under 30 Assessment & Plan (12/12/2022 10:22 AM PROTOHISTORIAN): Morbid obesity = body mass index above 40, Obesity = Body mass index over 30. [place] body mass index is less than 25. [...] 12/10/2022 Epigastric discomfort 01/28/20202022 Heart palpitations 01/28/2020 3 Large liver 01/28/2020 12/10/2022 Right upper quadrant pain 01/28/2020 Encounters Date Type Department Care Team Description 02/02/2025 7:10 AM CDT Lab [facility] Building [address] [place] [address] Annual physical exam; Low vitamin D level; Hyperlipidemia, mixed 02/02/2025 Results Follow-Up [facility] [address] [place] [phone] Alma Rosa Carrizales NP 12/17/2024 8:30 AM PROTOHISTORIAN Lab [facility] [address] [place] [address] Annual physical exam; Low vitamin D level; Uterine bleeding; Hyperlipidemia, mixed 12/17/2024 8:00 AM PROTOHISTORIAN Office Visit [facility] [address] [place] [phone] Sivan Merritt MD Annual physical exam (Primary Dx); Paroxysmal A-fib (HCC); Low vitamin D level; BMI 32.0-32.9,adult; Uterine bleeding; Hyperlipidemia, mixed 12/17/2024 Telephone [facility] [address] [facility] [address] [place] [phone] Sivan Merritt MD Lab Results from Last 3 Months Immunizations Immunization Administration Dates Next Due Influenza, Quadrivalent, Spl it, Preservative Free, Intramuscular 09/03/2019 Influenza, Trivalent, IM (MDV) 08/18/2017 Influenza, Trivalent, Preser vative Free, Intramuscular 09/02/2019,08/18/2017 Influenza, Unspecified 08/31/2024,2022,08/28/2022,09/02,08/18/2017 Tdap 03/20/2019 ZOSTER Recombinant 02/22/2021,09/10/2020 Surgical History Surgery Date Site/Laterality Comments CHOLECYSTECTOMY 11/18/1999 - 11/17/2000 ERCP 11/18/2014 - 11/17/2015 with sphincterotomy, retained cbd stone, Dr Bishop LIPOMA RESECTION 11/18/2009 - 11/17/2010 KIDNEY STONE SURGERY 11/18/2004 - 11/17/2005 stent Medical History Medical History Date Comments Chronic a-fib (HCC) 2019 Rosacea 2018 Kidney stone IBS (irritable bowel syndrome) Common bile duct stone 01/28/2020 Yrs after CCK Hx of MRCP and sphincterotomy, Dr Bishop GI Liver hemangioma 12/12/2022 Dr Bishop is G I Work up done confirmed benign hemangiomas Interstitial cystitis 12/12/2022 2 flare up s age 21 and 30s Hx of Elmiron therapy Stopped sodas with aspartane Irritable bowel syndrome with diarrhea 0 cck in 1999 Hx of colonoscopy at age 56, 2021 Dr Syed Bishop Paroxysmal A-fib (HCC) 10/13/2018 Dx [place] [address] Nash Tinajero Cardiology On flecainide, asa and metoprolol Last Assessment & Plan: She is having minimal symptoms of atrial fibrillation. Continue flecainide, metoprolol and aspirin. Family History Medical History Relation Name Comments No Known Problems Father Coronary artery disease Mother smok er, cabg Heart disease Mother Pancreatic cancer Mother Relation Name Status Comments Father Mother Social History Tobacco Use Types Packs/Day Years [...] on file Legal Sex Female 6:34 PM PROTOHISTORIAN Gender Identity Not on file Sexual Orientation Not on file Occupation Industry Job Start Date Job End Date RN Not on file Not on file Not on file Obstetrics History Last Filed Vital Signs Vital Sign Reading Time Taken Comments Blood Pressure 126/76 12/17/2024 7:48 AM PROTOHISTORIAN Pulse 63 12/17/2024 7:48 AM PROTOHISTORIAN Temperature 36.3 C (97.3 F) 12/17/2024 7:48 AM PROTOHISTORIAN Respiratory Rate 16 12/06/2022 3:48 PM PROTOHISTORIAN Oxygen Saturation 99% 12/17/2024 7:48 AM PROTOHISTORIAN Inhaled Oxygen Concentration - - Weight 98.4 kg (217 lb) 12/17/2024 7:48 AM PROTOHISTORIAN Height 172.7 cm (5' 8 ) 12/17/2024 7:48 AM PROTOHISTORIAN Body Mass Index 32.99 12/17/2024 7:48 AM PROTOHISTORIAN Plan of Treatment Health Maintenance Due Date Last Done Comments Cervical Cancer Screening 1966 Hepatitis B Screening 1984 Breast Cancer Screening-Mammogram 01/08/2025 01/08/2024, 01/08/2024, 01/08/2024, Additional history exists Depression Screening 12/17/2025 12/17/2024, 12/16/2023, 12/16/2023, Additional history exists Regular Well Visit/Exam 18-64 12/17/2025 12/17/2024, 12/16/2023, 12/12/2022 DTaP/Tdap/Td Vaccine (2 - Td or Tdap) 03/20/2029 03/20/2019 Colon Cancer Screening-Colonoscopy 07/03/2032 07/03/2022 Zoster Vaccine Completed 02/22/2021, 09/10/2020 Hepatitis C Screening Completed 12/18/2022 Influenza Vaccine Completed 08/31/2024, , 08/18/2023, Additional history exists Covid-19 Vaccine Completed 09/26/2024, , 08/10/2022, Additional history exists Pneumococcal vaccine <65 Aged Out No longer eligible based on patient's age to complete this topic Goals Goal Patient Goal Type Associated Problems [...] Hyperlipidemia, mixed EGFR Routine 12/17/2024 8:38 AM PROTOHISTORIAN Annual physical exam Low vitamin D level Uterine bleeding Hyperlipidemia, mixed COMPREHENSIVE METABOLIC PANEL Routine 12/17/2024 8:38 AM PROTOHISTORIAN Annual physical exam Low vitamin D level Uterine bleeding Hyperlipidemia, mixed LIPID PANEL Routine 12/17/2024 8:38 AM PROTOHISTORIAN Annual physical exam Low vitamin D level Uterine bleeding Hyperlipidemia, mixed TSH Routine 12/17/2024 8:38 AM PROTOHISTORIAN Annual physical exam Low vitamin D level Uterine bleeding Hyperlipidemia, mixed T4, FREE Routine 12/17/2024 8:38 AM PROTOHISTORIAN Annual physical exam Low vitamin D level Uterine bleeding Hyperlipidemia, mixed MAGNESIUM Routine 12/17/2024 8:38 AM PROTOHISTORIAN Annual physical exam Low vitamin D level Uterine bleeding Hyperlipidemia, mixed VITAMIN D 25 HYDROXY Routine 12/17/2024 8:38 AM PROTOHISTORIAN Annual physical exam Low vitamin D level Uterine bleeding Hyperlipidemia, mixed HM MAMMOGRAPHY Routine 01/08/2024 HEPATITIS C ANTIBODY Routine 12/18/2022 6:21 AM PROTOHISTORIAN from Last 3 Months or Most Recently Relevant to Health Maintenance Results * Urinalysis reflex to microscopic and culture Urine, clean voided (02/02/2025 7:29 AM CDT) Color, ur Yellow Yellow Comment:Testing performed by : [address] [address] Clarity, ur Clear Clear [facility] Comment:Testing performed by : [address] [address] Specific gravity, ur 1.016 1.003 - 1.030 [facility] Comment:Testing performed by : [address] [address] pH, urine 5.0 [facility] Comment: Interpretive Data U rine pH is affected by diet, medications, systemic acid-base disturbances, and renal tubular function. pH may affect urinary stone formation. For example, urine pH below 6.0 may help reduce the tendency for calcium phosphate stones and pH greater than 6.0 may reduce the tendency for uric acid stone formation. Source: [facility] Let's Talk Current Interpretive Data was last revised on 2017 Testing performed by: [address] [address] Protein, ur ql Negative Negative [facility] Comment:Testing performed by : [address] [address] Glucose, ur ql Negative Negative [facility] Comment:Testing performed by : [address] [address] Ketones, ur Negative Negative [facility] Comment:Testing performed by : [address] [address] Bilirubin, ur Negative Negative [facility]O Comment:Testing performed by : [facility], [address] [place] [address], [place]., [address] Blood, ur Negative Negative G[facility]O Comment:Testing performed by : [address], [place]., [address] Urobilinogen, ur <2.0 <2.0 mg/dL [facility] Comment:Testing performed by : [address], [place]., [address] Nitrite, ur Negative Negative [facility] Comment:Testing performed by : [facility], [address] [place] [address], [place]., [address] Leukocyte esterase, ur Negative Negative [facility] Comment:Testing performed by : [address], [place]., [address] UA reflex comment Reflex conditions for microscopic UA and culture not met. [facility] Comment:Testing performed by : [address], [place]., [address] Urine, clean voided 02/02/2025 7:29 AM CDT 02/02/2025 10:07 AM CDT Narrative [facility] - 02/02/2025 10:23 AM CDT Urine Collection Method->Clean Catch us Sivan Merritt MD LAB MICROBIOLOGY - GENERAL O RDERABLES Final Result [facility] [address] [facility] Department of Laboratories [place], [place] [id number] * eGFR (12/17/2024 8:38 AM PROTOHISTORIAN) eGFR >90 >=60 mL/min/1. 73 m2 Comment: [...] was last reviewed 2021. Testing performed by: [facility], [address] [place] [address]., [address] Blood 12/17/2024 8:38 AM PROTOHISTORIAN 12/17/2024 9:32 AM PROTOHISTORIAN Sivan Merritt MD LAB BLOOD ORDERABLES Final R esult Performing Organization Address [facility] Co de Phone Number HARDY[address] [employer] [place] [address] * (ABNORMAL) Vitamin D 25 hydroxy (12/17/2024 8:38 AM PROTOHISTORIAN) Vitamin D 25-OH 28.0(L) 30.0 - 80.0 ng/mL Blood 12/17/2024 8:38 AM PROTOHISTORIAN 12/17/2024 10:18 AM PROTOHISTORIAN us Sivan Merritt MD LAB BLOOD ORDERABLES Final R esult Performing Organization Address [facility] Co de Phone Number [address] [place] [address] * TSH (12/17/2024 8:38 AM PROTOHISTORIAN) Thyroid Stimulating Hormone 1.98 0.30 - 4.20 mcIUnit/mL Comment:Testing performed by : [address] [address] Blood 12/17/2024 8:38 AM PROTOHISTORIAN 12/17/2024 9:32 AM PROTOHISTORIAN us Sivan Merritt MD LAB BLOOD ORDERABLES Final R esult Performing Organization Address City/[facility] Co de Phone Number [facility] [address] [address] * T4, free (12/17/2024 8:38 AM PROTOHISTORIAN) [facility] Free T4 1.33 0.90 - 1.70 ng/dL Comment:Testing performed by : [address] [address] Blood 12/17/2024 8:38 AM PROTOHISTORIAN 12/17/2024 9:32 AM PROTOHISTORIAN Sivan Merritt MD LAB BLOOD ORDERABLES Final R esult Performing Organization Address [facility] Co de Phone Number [facility] [address] [address] * Magnesium (12/17/2024 8:38 AM PROTOHISTORIAN) [facility] Magnesium 2.2 1.4 - 2.5 mg/dL Comment:Testing performed by : [facility], [address] [place] [address]., [address] Blood 12/17/2024 8:38 AM PROTOHISTORIAN 12/17/2024 9:32 AM PROTOHISTORIAN Sivan Merritt MD LAB BLOOD ORDERABLES Final R esult Performing Organization Address [facility] Co de Phone Number [address] [address] * (ABNORMAL) Lipid panel (12/17/2024 8:38 AM PROTOHISTORIAN) [facility] Cholesterol 221(H) 30 - 199 mg/dL Comment: [...] last revised on 2018. Testing performed by: [address] [address] Triglycerides 184(H) <=149 mg/dL [facility] Comment: Interpretive Data Ages < [...] last revised on 2018. Testing performed by: [address] [address] HDL 57 >=40 mg/dL [facility] Comment: Interpretive [...] last revised on 2018. Testing performed by: [address] [address] LDL, calculated 131(H) <=129 mg/dL [facility] Comment: Interpretive Data Ages < or = 19 years Acceptable: <110 mg/dL Borderline high: 110-129 mg/dL High: >or= 130 mg/dL Ages > or = 20 years Optimal: <100 mg/dL Near optimal: 100-129 mg/dL Borderline high: 130-159 mg/dL High: >160 mg/dL Calculated using the Murillo LDL-C estimating equation. This equation was implemented [...] last revised on 2024. Testing performed by: [address] [address] Non-HDL Cholesterol 164 mg/dL [facility] Comment: Interpretive Data Ages < [...] last revised on 2018. Testing performed by: [address] [address] Chol/HDL ratio 4 [facility] Comment:Testing performed by : [address] [address] Blood 12/17/2024 8:38 AM PROTOHISTORIAN 12/17/2024 9:32 AM PROTOHISTORIAN us Sivan Merritt MD LAB BLOOD ORDERABLES Final R esult [facility] [address] [facility] Department [place] [address] * Comprehensive metabolic panel (12/17/2024 8:38 AM PROTOHISTORIAN) [facility] Sodium 141 135 - 145 mmol/L Comment:Testing performed by : [address] [address] Potassium, pl 4.5 3.3 - 4.9 mmol/L [facility] Comment:Testing performed by : [address], [place]., [address] Chloride 105 97 - 110 mmol/L [facility] Comment:Testing performed by : [address], [place]., [address] CO2 26 22 - 32 mmol/L [facility] Comment:Testing performed by : [address], [place]., [address] Anion gap 10 2 - 15 mmol/L [facility] Comment:Testing performed by : [address], [place]., [address] BUN 12 6 - 25 mg/dL [facility] Comment:Testing performed by : [address], [place]., [address] Creatinine 0.75 0.60 - 1.10 mg/dL [facility] Comment:Testing performed by : [address] [address] Glucose 100 70 - 199 mg/dL [facility] Comment: Interpretive Data Fasting glucose >/= [...] was last revised 2022. Testing performed by: [address] [address] Calcium 10.1 8.5 - 10.3 mg/dL [facility] Comment:Testing performed by : [address] [address] Bilirubin, total 0.5 0.1 - 1.2 mg/dL [facility] Comment:Testing performed by : [address] [address] Protein, pl 7.2 6.5 - 8.5 g/dL [facility] Comment:Testing performed by : [address] [address] Albumin 4.4 3.5 - 5.0 g/dL [facility] Comment:Testing performed by : [address] [address] Alk phos 76 40 - 130 Units/L [facility] Comment:Testing performed by : [address] [address] ALT 8 7 - 45 Units/L [facility] Comment:Testing performed by : [address] [address] AST 13 10 - 45 Units/L [facility] Comment:Testing performed by : [address] [address] Blood 12/17/2024 8:38 AM PROTOHISTORIAN 12/17/2024 9:32 AM PROTOHISTORIAN Sivan Merritt MD LAB BLOOD ORDERABLES Final R esult [facility] Department [place] [address] * HM MAMMOGRAPHY (01/08/2024) Pathologist [facility] Mammography Normal Historical Provider HEALTH MAINTENANCE Final Result * Hepatitis C antibody (12/18/2022 6:21 AM PROTOHISTORIAN) Pathologist [facility] Hep C Ab NON-REACTI VE NON-REACT JAH [facility] SIGNAL TO CUT-OFF 0.27 <1.00 [facility] Comment: HCV antibody was non-reactive. There is no laboratory evidence of HCV infection. In most cases, no further action is required. However, if recent HCV exposure is suspected, a test for HCV RNA (test code 17291) is suggested. For additional information please refer to http://education.Solavei/faq/VOS83h0 (This link is being provided for informational/ educational purposes only.) 12/18/2022 6:21 AM PROTOHISTORIAN 12/18/2022 6:24 AM PROTOHISTORIAN Narrative [facility] - 12/19/2022 3:09 AM PROTOHISTORIAN FASTING:YES FASTING: YES us Sivan Merritt MD LAB MICROBIOLOGY - GENERAL O RDERABLES Final Result [facility] [address] [place] [address] from Last 3 Months or Most Recently Relevant to Health Maintenance Insurance [employer] OPEN ACCESS [employer] OPEN ACCESS [employer] ACCESS PR Care Teams Cia Agent Relationship Specialty Start Date End Date Sivan Merritt MD [address] [place] [id number] PCP - General Internal Medicine 12/12/22 Nash Tinajero MD Referring Physician Cardiology 12/10/22 Rafiq Kumar MD [address] [address] [place], [place] [phone] Referring Physician Clinical Cardiac Electrophysiology 12/10/22 Toni Bishop MD [address] [place] [address] [place] [address] Referring Physician Gastroenterology 12/12/22 Destiny Baldwin NP [address] [address] Nurse Practitioner Obstetrics and Gynecology 12/12/22 Sher Mendez MD [address] [facility], [address] [address] Consulting Physician Rheumatology 12/16/23
--- OUTSIDE RECORDS SUMMARY | 2025-03-15 01:45 | XMS_ITS | Clinical Summary ---
Author Organization [facility] Address [address] [place] [address] Care Team Providers Care Contact Lens Fitter Name Role Phone Cuhng Conley MD Primary Care Provider + Encounters Date Type Department Care Team Description 01/06/2025 External Device Data STL ABSTRACTION Provider, Abstract from Last 3 Months Social History Tobacco Use Types Packs/Day Years Used Date Smoking Tobacco: Never Assessed Comments Unknown Sex and Gender Information Value Date Recorded Sex Assigned at Not on file Legal Sex Female 3:16 AM ARCHIVAL STUDIES PROFESSOR Gender Identity Not on file Sexual Orientation Not on file Plan of Treatment Upcoming Encounters Date Type Department Care Team (Late st Contact Info) Description 03/30/2025 7:20 AM CDT Appointment [facility] Breast [facility] [address] [facility] [facility] [address] [place] [address] [place]ung [place] [address] Health Maintenance Due Date Last Done Comments HEPATITIS B VACCINES (1 of 3 - 19+ 3-dose series) 1985 HPV/Cotest (21-29) 1987 CERVICAL CANCER SCREENING 1996 HPV/Cotest (30-65) 1996 PAP SMEAR 1996 COLORECTAL SCREENING 2011 Colorectal Cancer Screening 2011 FIT-DNA Q 3 years 2011 FIT/FOBT Q 1 year 2011 Flex Sig/CT Colonography Q 5 years 2011 INFLUENZA VACCINE (#1) 2024 9, 09/02/2019, 08/18/2017, Additional history exists COVID-19 Vaccine (2023-2 5 season) 2024 11/07/2020 BREAST CANCER SCREENING 01/08/2025 01/08/20, 12/06/2022, 12/06/2022, Additional history exists DTAP/TDAP/TD VACCINES (2 - T d or Tdap) 03/20/2029 03/20/2019 ZOSTER VACCINE Completed 02/22/2021, 09/10/2020 Procedures Procedure Name Priority Date/Time Associated Diagnosis Comments MAMMO 3D LARISSA SCREEN BILAT W OR WO CAD Routine 01/08/2024 7:28 AM ARCHIVAL STUDIES PROFESSOR Visit for screening mammogram from Last 3 Months or Most Recently Relevant to Health Maintenance Results * MAMMO 3D LARISSA SCREEN BILAT W OR WO CAD (01/08/2024 7:28 AM ARCHIVAL STUDIES PROFESSOR) Anatomical Region Laterality Modality Breast Bilateral Mammography 01/08/2024 7:39 AM ARCHIVAL STUDIES PROFESSOR Impressions 01/08/2024 11:56 AM ARCHIVAL STUDIES PROFESSOR IMPRESSION: No mammographic evidence of malignancy. RECOMMENDATIONS: Routine screening mammogram in one year. DICTATION LOCATION: [facility] Narrative 01/08/2024 11:56 AM ARCHIVAL STUDIES PROFESSOR BILATERAL FULL-FIELD DIGITAL SCREENING MAMMOGRAM WITH CAD WITH 3D TOMOSYNTHESIS DATE: 01/08/2024 7:28 AM HISTORY: Routine screening. TECHNIQUE: Full-field digital craniocaudal and mediolateral oblique projections of both breasts were obtained. Low-dose full-field digital breast tomosynthesis examination was performed with 3D acquisitions. Examination is read in conjunction with computer aided detection. COMPARISON: Mammograms dating back to 2018 BREAST COMPOSITION: The breasts are heterogeneously dense, which may obscure small masses. FINDINGS: No suspicious mass, suspicious microcalcifications, or architectural distortion in either breast is identified. Since the prior study, there has been no significant interval change. The computer aided diagnosis detects no significant abnormality. OVERALL FINAL ASSESSMENT: BI-RADS CATEGORY 1 : Negative Procedure Note Maddison Alcantara MD - 01/08/2024 BILATERAL FULL-FIELD DIGITAL SCREENING MAMMOGRAM WITH CAD WITH 3D TOMOSYNTHESIS DATE: 01/08/2024 7:28 AM HISTORY: Routine screening. TECHNIQUE: Full-field digital craniocaudal and mediolateral oblique projections of both breasts were obtained. Low-dose full-field digital breast tomosynthesis examination was performed with 3D acquisitions. Examination is read in conjunction with computer aided detection. COMPARISON: Mammograms dating back to 2018 BREAST COMPOSITION: The breasts are heterogeneously dense, which may obscure small masses. FINDINGS: No suspicious mass, suspicious microcalcifications, or architectural distortion in either breast is identified. Since the prior study, there has been no significant interval change. The computer aided diagnosis detects no significant abnormality. OVERALL FINAL ASSESSMENT: BI-RADS CATEGORY 1 : Negative IMPRESSION: No mammographic evidence of malignancy. RECOMMENDATIONS: Routine screening mammogram in one year. DICTATION LOCATION: [facility] Sivan Merritt MD MAMMO ORDERABLES Final Result from Last 3 Months or Most Recently Relevant to Health Maintenance Insurance [employer] [facility] OPEN ACCESS Care Teams Contact Lens Fitter Relationship Specialty Start Date End Date Chung Conley MD PCP - General Family Practice 09/06/21
--- OUTSIDE RECORDS SUMMARY | 2025-03-15 01:45 | XMS_ITS | Encounter Summary ---
Author Organization [facility] Address [address] [place] [address] Care Team Providers Care Soup Mixer Name Role Phone Nash Tinajero MD Unavailable [phone] Rafiq Kumar MD Unavailable Sivan Merritt MD Primary Care Provider [phone] Encounter Details Date Type Department Care Team (Late st Contact Info) Description 02/18/2025 Heart Test Laboratories Message Enc [facility] [address] [facility], [facility] [address] [place], [place] [id number] Rafiq Kumar MD [facility] 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 If that the VT concerning one? How long did the A.Fib/Aflutter last? Thanks Evelyne documented in this encounter Plan of Treatment Upcoming Encounters Date Type Department Care Team (Late st Contact Info) Description 08/06/2025 1:15 PM CDT Office Visit [facility] [address], [address] [place], [place] [phone] Rafiq Kumar MD [address] [place], [place] [address] documented as of this encounter Visit Diagnoses Not on filedocumented in this encounter Care Teams Soup Mixer Relationship Specialty Start Date End Date Sivan Merritt MD [address] [facility] [address] [address] PCP - General INTERNAL MEDICINE 03/18/23 Nash Tinajero MD [address] [place], [place] [address] [place] Resident Inspector INTERVENTIONAL CARDIOLOGY 08/15/18 Rafiq Kumar MD [address] [place], [place] [address] EP Resident Inspector CLINICAL CARDIAC ELECTROPHYSIOLOGY 10/01/18 documented as of this encounter
--- OUTSIDE RECORDS SUMMARY | 2025-03-15 01:45 | XMS_ITS | Encounter Summary ---
Author Organization [employer] Address [address] [place] [address] Care Team Providers Care General Road Production Manager Name Role Phone Chung Conley MD Primary Care Provider + Encounter Details Date Type Department Care Team (Late Contact Info) Description 09/09/2006 Outpatient Historical [facility] MRI DEPT Toni Bishop MD [address] [place] [address] [address] [place] [phone] Hemangioma of Intra-Abdominal Structures (Primary Dx) Social History Tobacco Use Types Packs/Day Years Used Date Smoking Tobacco: Never Assessed Comments Unknown Sex and Gender Information Value Date Recorded Sex Assigned at Not on file 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 Gender Identity Not on file Sexual Orientation Not on file documented as of this encounter Plan of Treatment Upcoming Encounters Date Type Department Care Team (Late Contact Info) Description 03/30/2025 7:20 AM CDT Appointment [facility] Breast Center [facility] at [facility] [address] [place] [address] Abdelrahman [facility] [address] [place] [address] [place] [address] documented as of this encounter Visit Diagnoses Diagnosis Hemangioma of intra-abdominal structures- Primary Visit for screening mammogram Other screening mammogram documented in this encounter Care Teams General Road Production Manager Relationship Specialty Start Date End Date Chung Conley MD PCP - General Family Practice 09/06/21 documented as of this encounter
--- OUTSIDE RECORDS SUMMARY | 2025-03-15 01:45 | XMS_ITS | Encounter Summary ---
Author Organization [facility] Address [address] [place] [address] Care Team Providers Care Human Resources Coordinator Name Role Phone Chung Conley MD Primary Care Provider + Encounter Details Date Type Department Care Team (Latest Contact Info) Description 09/24/2006 Outpatient Historical [facility] AMBULATORY INTERVENTIONAL CARE Severiano Sanabria MD [address] [facility] [place] [address] Toni Bishop MD [address] [facility] [address] [place] [address] Unspecified Disorder of Liver (Primary Dx) Social History Tobacco Use Types Packs/Day Years Used Date Smoking Tobacco: Never Assessed Comments Unknown Sex and Gender Information Value Date Recorded Sex Assigned at Not on file Legal Sex Female 3:16 AM COLOR SEPARATION PHOTOGRAPHER Gender Identity Not on file Sexual Orientation Not on file documented as of this encounter Plan of Treatment Upcoming Encounters Date Type Department Care Team (Late st Contact Info) Description 03/30/2025 7:20 AM CDT Appointment [facility] Breast Center [facility] at [facility] [address] [facility] [address] [place] [address] Chung Conley MD [address] [place] [address] documented as of this encounter Procedures Procedure Name Priority Date/Time Associated Diagnosis Comments PT AND APTT Routine 09/24/2006 6:25 AM COLOR SEPARATION PHOTOGRAPHER PLATELET COUNT Routine 09/24/2006 6:25 AM COLOR SEPARATION PHOTOGRAPHER documented in this encounter Results * PLATELET COUNT (09/24/2006 6:25 AM COLOR SEPARATION PHOTOGRAPHER) PLATELETS 185 140 - 350 K/uL INTERFACE SYSTEM MPV 11.0 9.3 - 12.4 fL INTERFACE SYSTEM 09/24/2006 6:25 AM COLOR SEPARATION PHOTOGRAPHER Toni Bishop MD HEMATOLOGY ORDERABLES Final Result INTERFACE SYSTEM Refer to clinic/hospital department * PT AND APTT (09/24/2006 6:25 AM COLOR SEPARATION PHOTOGRAPHER) PROTIME 13.0 12.7 - 15.1 Seconds INTERFACE SYSTEM INR 0.9 0.9 - 1.1 INTERFACE SYSTEM Comment: INR Therapeutic Range: Adult: 2.0 - 3.0 for pulmonary embolism or prophylaxis against venous thrombosis or systemic embolization. 2.0 - 3.0 for patients with tissue heart valves. 2.5 - 3.5 for patients with mechanical heart valves or post OK. Pediatric (12 years and under): 1.5 - 3.0 Although the target range in children is not well established , INR values of 1.5 - 3.0 are recommended for most patients. Higher values have been used in children with prosthetic cardiac valves and hereditary clotting disorders. (<3 days) therapeutic ranges have not been established. PTT 27.9 24.4 - 36.4 Seconds INTERFACE SYSTEM Comment: PTT Therapeutic Range: Heparin Level PTT (seconds) <0.10 units/mL <53 0.10 - 0.30 units/mL 53 - 67 0.30 - 0.70 units/mL* 67 - 95* 0.70 - 1.00 units/mL 95 - 116 *corresponds to therapeutic range for unfractionated heparin 09/24/2006 6:25 AM COLOR SEPARATION PHOTOGRAPHER Toni Bishop MD HEMATOLOGY ORDERABLES Final Result INTERFACE SYSTEM Refer to clinic/hospital department documented in this encounter Visit Diagnoses Diagnosis Unspecified disorder of liver- Primary Visit for screening mammogram Other screening mammogram documented in this encounter Care Teams Human Resources Coordinator Relationship Specialty Start Date End Date Chung Conley MD PCP - General Family Practice 09/06/21 documented as of this encounter
--- OUTSIDE RECORDS SUMMARY | 2025-03-15 01:45 | XMS_ITS | Clinical Summary ---
Author Organization [facility] Address [address] [place] [address] Care Team Providers Care Cultural Centre Manager Name Role Phone SmithJesús ruizjensenfady Primary Care Provider Source Comments [facility]non-owned Affiliates and Associated Physician Practices is amultiple site organization consisting of ambulatory clinics and hospital sitesin [place], [place], [place] and [place]. This disclosure is being madepursuant to the Care Everywhere program and may not contain all information available regarding this patient. Last updated 18.[facility] Social History Tobacco Use Types Packs/Day Years Used Date Smoking Tobacco: Never Assessed Comments Unknown Sex and Gender Information Value Date Recorded Sex Assigned at Not on file Legal Sex Female 8:24 AM MANAGER COMMUNITY OUTREACH Gender Identity Not on file Sexual Orientation Not on file Plan of Treatment Health Maintenance Due Date Last Done Comments COLOGUARD (AGES 45-75) - COL ON CA SCREENING 1966 COLON MONITORING 1966 COLONOSCOPY - COLON CA SCREENING 1966 CT COLONOGRAPHY - COLON CA SCREENING 1966 Colorectal Cancer Screening 1966 FIT - COLON CA SCREENING 1966 FLEX SIG - COLON CA SCREENING 1966 LIPID TESTING 1966 MAMMOGRAM 1966 PAP SMEAR 1966 HIV SCREENING 1981 HEPATITIS C SCREENING 06/09/1984 DTAP/TDAP/TD VACCINES (1 - Tdap) 1985 HEPATITIS B VACCINE (1 of 3 - 19+ 3-dose series) 1985 PNEUMOCOCCAL VACCINE 50+ (1 of 1 - PCV) 2016 ZOSTER VACCINE (1 of 2) 2016 COVID-19 VACCINE (1 2023-2 5 season) 2024 DEPRESSION SCREENING 11/18/2024 INFLUENZA VACCINE (Season Ended) 2025 HIB VACCINE Aged Out No longer eligi ble based on patient's age to complete this topic HPV VACCINE Aged Out No longer eligi ble based on patient's age to complete this topic MENINGOCOCCAL (Group B) VACC INE SHARED DECISION-MAKING Aged Out No longer eligibl e based on patient's age to complete this topic MENINGOCOCCAL GROUPS A/C/Y/W VACCINE Aged Out No longer eligible b ased on patient's age to complete this topic Insurance ANTH Care Teams Cultural Centre Manager Relationship Specialty Start Date End Date Jesús Smith DO PCP - General 10/28/19
--- OUTSIDE RECORDS SUMMARY | 2025-03-15 01:45 | XMS_ITS | Encounter Summary ---
Author Organization [facility] Address [address] [place] [address] Care Team Providers Care Solar Business Developer Name Role Phone Jesús Smith DO Primary Care Provider Encounter Details Date Type Department Care Team (Late st Contact Info) Description 04/04/2022 Lab Requisition [facility] [address] [place] [phone] Lui Santillan MD [address] [facility] [place] [address] Social History Tobacco Use Types Packs/Day Years Used Date Smoking Tobacco: Never Assessed Comments Unknown Sex and Gender Information Value Date Recorded Sex Assigned at Not on file Legal Sex Female 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 Gender Identity Not on file Sexual Orientation Not on file documented as of this encounter Plan of Treatment Not on file documented as of this encounter Procedures Procedure Name Priority Date/Time Associated Diagnosis Comments DERMATOPATHOLOGY Routine 04/03/2022 12:0 0 AM CDT documented in this encounter Results * DERMATOPATHOLOGY (04/03/2022 12:00 AM CDT) Case Report Dermatopathology Report Case: [id number] Authorizing Provider: Lui Santillan MD Collected: 04/03/2022 12:00 AM Ordering Location: [facility] Received: 04/04/2022 04:35 PM Pathologist: Katya Maldonado MD Specimen: Skin, right lateral neck 3:12 PM CDT DERMATOPATHOLOGY LABORATORY Final Diagnosis Specimen A. SKIN, right lateral neck: SEBORRHEIC KERATOSIS, IRRITATED AND INFLAMED (L82.0) 2 3:12 PM CDT DERMATOPATHOLOGY LABORATORY Clinical History ISK vs VV vs SCCA. Path # [id number]. 2 3:12 PM CDT DERMATOPATHOLOGY LABORATORY Gross Description Specimen A: Received is one formalin filled container labeled with the patient's name and designated right lateral neck. The specimen consists of a shave biopsy measuring [id number]. Jar 0. 2 3:12 PM CDT DERMATOPATHOLOGY LABORATORY Microscopic Description Specimen A. SKIN, right lateral neck: Sections show acanthosis, papillomatosis, hyperkeratosis, and squamous eddies. There is a lymphohistiocytic infiltrate within the papillary dermis. 2 3:12 PM CDT DERMATOPATHOLOGY LABORATORY Disclaimer An external and internal positive and negative controls are appropriate for the histochemical, immunohistochemical and immunofluorescence stain(s) in this case (if any), except where stated explicitly. The performance characteristics of the stain(s) cited in this report were developed and its performance characteristic determined by the Dermatopathology Laboratory at [facility], directed by Dr. Tk Frank. These tests need not be, and therefore are not, approved by the [place] Food and Drug Administration. The tests are used for clinical purposes. Billing Codes Specimen Charges Stain Charges 21871 1 2 3:12 PM CDT DERMATOPATHOLOGY LABORATORY Embedded Images 2 3:12 PM CDT DERMATOPATHOLOGY LABORATORY Pathology/Cytolog y TISSUE SPECIMEN FROM SKIN / Unknown 04/03/2022 04/04/2022 4:35 PM CDT us Lui Santillan MD LAB - PATHOLOGY/CYTOLOGY ORDER MIKE Final Result DERMATOPATHOLOGY LABORATORY [facility] - Department of Dermatology [address], [address] [phone] documented in this encounter Visit Diagnoses Not on filedocumented in this encounter Care Teams Solar Business Developer Relationship Specialty Start Date End Date Jesús Smith DO PCP - General 10/28/19 documented as of this encounter
--- NOTE | 2025-03-15 08:26 | WPDHPUPDATE1 ---
History and Physical Update Update Date/Time: 03/15/25 08:26 History and Physical has been reviewed, including an updated exam of the patient. There are NO changes in the patient's condition. Risks, benefits, and alternatives have been discussed and questions answered. Patient agrees to proceed with procedure.
--- NOTE | 2025-03-15 08:27 | PM.HPGS ---
History of Present Illness History of Present Illness Consent: Risks, benefits, and alternatives have been discussed and questions answered. Patient agrees to proceed with procedure. Chief complaint: Post Menopausal Bleed Narrative: Lindsay Amezquita is a 59 year old female with vaginal bleeding. Pelvic ultrasound reveals a thickened endometrium. Patient did start Eliquis prior to starting the spotting. But with the thickened lining it was recommended to proceed with D&C hysteroscopy. Risks of infection, bleeding, perforation, and possible pathology are discussed. Patient voices understanding and agrees to proceed. Review of Systems Review of Systems: not repeated day of surgery; patient states no changes in status [facility] Past Medical History Medical History (Updated 03/15/25 @ 08:31 by Louise Jack MD) (normal spontaneous vaginal delivery) X2 Irritable bowel syndrome Interstitial cystitis Atrial fibrillation Surgical History Surgical History (Updated 03/15/25 @ 08:30 by Louise Jack MD) Status post cholecystectomy Required ERCP secondary to stones in the bile duct later Status post excision of lipoma Axillary Social History Social History Smoking status: Never smoker Living arrangements: with family Spiritual care concerns: No Meds Home Medications and Allergies Home Medications ?Medication ?Instructions ?Recorded ?Confirmed ?Type apixaban 5 mg tablet (Eliquis) 5 mg PO Q12H 02/23/25 02/23/25 History flecainide 100 mg tablet 100 mg PO Q12H 02/23/25 02/23/25 History metoprolol succinate 50 mg 50 mg PO DAILY 02/23/25 03/04/25 History tablet,extended release 24 hr Allergies Allergy/AdvReac Type Severity Reaction Status Date / Time meperidine (From Demerol) AdvReac Mild Hives Verified 03/04/25 12:49 Exam Const: General: healthy appearing and alert Orientation/consciousness: patient oriented x3 Resp: Effort & Inspection: normal respiratory effort : External Female Exam: normal external appearance Speculum Exam - Vagina: normal appearance of the vagina and normal vaginal discharge Speculum Exam - Cervix: normal appearance of the cervix Bimanual exam- vagina & uterus: uterine size normal and consistency normal Bimanual Exam- Adnexa, other: normal adnexae and No adnexal tenderness Neuro: General: patient oriented x3 Assessment and Plan Assessment and plan (1) Post-menopausal bleeding: Code(s): N95.0 - Postmenopausal bleeding Status: Acute Assessment and Plan: Plan to proceed with D&C hysteroscopy
[2025-03-15 12:00] VITALS: BP 134/67; PULSE 62; RESP 14; TEMP 36.2; O2SAT 100
--- NOTE | 2025-03-15 12:32 | P.PNAN_ITS ---
Anes - Initial Pre Proc Eval Procedure: Operation Date: 03/15/25 13:45 Proposed Procedures p Hysteroscopy Dilation and Curettage - Louise Jack MD Date/Time: 03/15/25 12:32 Surgeon: Louise Jack MD Pre Op Diagnosis: Post Menopausal Bleed Patient Data Age: 59 Gender: F Height: 1.73 m Weight: 94.8 kg Allergies Allergy/AdvReac Type Severity Reaction Status Date / Time meperidine (From Demerol) AdvReac Mild Hives Verified 03/04/25 12:49 Home Medications ?Medication ?Instructions ?Recorded ?Confirmed ?Type apixaban 5 mg tablet (Eliquis) 5 mg PO Q12H 02/23/25 02/23/25 History flecainide 100 mg tablet 100 mg PO Q12H 02/23/25 02/23/25 History metoprolol succinate 50 mg 50 mg PO DAILY 02/23/25 03/04/25 History tablet,extended release 24 hr Patient hx anesthesia problems: none Family hx anesthesia problems: none Results Review: All pre-operative results and documents have been reviewed as part of the pre- operative evaluation. [facility] Past Medical History Medical History (Updated 03/15/25 @ 08:31 by Louise Jack MD) (normal spontaneous vaginal delivery) X2 Irritable bowel syndrome Interstitial cystitis Atrial fibrillation Surgical History Surgical History (Updated 03/15/25 @ 08:30 by Louise Jack MD) Status post cholecystectomy Required ERCP secondary to stones in the bile duct later Status post excision of lipoma Axillary Social History Social History Smoking status: Never smoker Living arrangements: with family Spiritual care concerns: No Anes - Eval Final PreProcedure Day of Procedure 03/15/25 12:32 Patient weight: obese Heart: regular rate and rhythm Lungs: clear to auscultation Airway: Mallampati scale class II Neurological: alert and oriented Last oral intake: >/= 8 hours ASA classification: III Emergent: no Anesthetic plan: proceed Anesthesia type and monitoring: general GIVS and standard monitoring Results Review: All pre-operative results and documents have been reviewed as part of the pre- operative evaluation. Informed Consent: The patient's anesthetic plan and its attendant risks and benefits were discussed with the patient/family/POA. Questions were solicited and answers provided to the satisfaction of the patient/family/POA.
[2025-03-15] MEDS: ACETAMINOPHEN 500 MG TABLET 1000 MG PO (12:49)
[2025-03-15] MEDS: LACTATED RINGERS 1,000 ML 30 ML IV CONT (13:25)
[2025-03-15] MEDS: KETOROLAC 15 MG/ML VIAL (*BKC) IV PUSH (13:30)
[2025-03-15 13:40] VITALS: BP 100/59; PULSE 60; RESP 14; O2SAT 100
--- NOTE | 2025-03-15 13:41 | P.OP_ITS ---
Procedure Note - Detailed Date of Procedure 03/15/25 Pre-op Diagnosis Post Menopausal Bleed Post-op Diagnosis Same Procedure Performed D&C hysteroscopy Surgeon Louise Jack MD Anesthesia MAC Findings uterus sounds to 8cm sessile fibroids atrophic endometrium Description of Procedure The patient was taken the operating room and placed under anesthesia in the dorsal lithotomy position. She was prepped and draped in the usual sterile fashion. The bivalve speculum was placed in the vagina and the cervix grasped on the anterior lip with a tenaculum. The uterus is sounded to 8cm. The hysteroscope was placed and the appearance is very atrophic and vascular. There are sessile fibroids but I can see around them and no lesions are noted. Hysteroscope removed and the uterus was sharply curetted until a good uterine cry was noted in all areas. Minimal material was obtained consistent with the visual appearance. All instruments are removed. The sponge, needle, and instrument counts are correct per the OR staff. The patient was taken to r ecovery in stable condition. Estimated Blood Loss 5 Drains No Packing No Pathology Yes ( Endometrial curettings) Complications No immediate complications Condition Stable Disposition PACU
[2025-03-15 14:00] VITALS: BP 97/56; PULSE 53; RESP 20
[2025-03-15 14:15] VITALS: BP 118/66; PULSE 57; RESP 20
[2025-03-15 14:25] VITALS: BP 120/60; PULSE 60; RESP 20
== END 2025-03-15 14:30 | disposition home or self-care (01) ==
PROVIDERS: PCP Internal Medicine; Visit Provider Obstetrics & Gynecology Gynecology
PROC: 0U5B8ZZ Destruction of Endometrium, Via Natural or Artificial Opening Endoscopic (ICD-10-PCS; CPT 58563; principal; 2025-03-15 13:45)
DX: N95.0 Postmenopausal bleeding (principal); N85.8 Other specified noninflammatory disorders of uterus; E66.9 Obesity, unspecified; Z68.33 Body mass index [BMI] 33.0-33.9, adult
CPT/HCPCS: 58558; 88305; A9270; J1885; J2003; J2250; J2405; J2704; J3010; J7120